=== PATIENT | female | born 1975 | race Caucasian/White ===

== ENCOUNTER 2019-05-04 10:13 | Observation (INO) | payer OTHER, SELFPAY ==
[~2019-05-04] VITALS: Ht 175.3 cm; Wt 68.5 kg
[2019-05-04] MEDS ORDERED: ALBU1.25 NEB (10:22)
[2019-05-04] MEDS ORDERED: NS 1,000 ML IV ONE ×4 (10:30→16:00)
[2019-05-04 10:47] LABS: VENOUS BASE EXCESS 1.2 (-2.0-2.0); VENOUS HCO3 22.2 MEQ/L (23.0-27.0); VENOUS O2 SATURATION 48.9 % (60.0-80.0); VENOUS PARTIAL PRESSURE CO2 26.5 mmHg (38.0-50.0); VENOUS PARTIAL PRESSURE O2 23.9 mmHg (30.0-50.0); VENOUS PH 7.541 UNITS (7.330-7.430); VENOUS STANDARD HCO3 24.3 MEQ/L
[2019-05-04 10:53] LABS: BASO # 0.1 10^3/uL (0.0-0.2); BASO % 0.7 % (0.0-1.0); EOS # 0.1 10^3/uL (0.0-0.5); EOS % 0.7 % (0.0-3.0); HEMATOCRIT 41.1 % (36.0-47.0); HEMOGLOBIN 14.7 g/dl (12.0-15.5); LYMPH # 1.5 10^3/uL (1.5-5.0); LYMPH % 19.5 % (24.0-44.0); MEAN CORPUSCULAR HEMOGLOBIN 33.8 pg (27.0-33.0); MEAN CORPUSCULAR HGB CONC 35.8 g/dl (32.0-36.5); MEAN CORPUSCULAR VOLUME 94.5 fl (80.0-96.0); MONO # 0.7 10^3/uL (0.0-0.8); MONO % 9.9 % (0.0-5.0); NEUTROPHILS # 5.1 10^3/uL (1.5-8.5); NEUTROPHILS % 68.8 % (36.0-66.0); PLATELET COUNT, AUTOMATED 322 10^3/uL (150-450); RED BLOOD COUNT 4.35 10^6/uL (4.00-5.40); WHITE BLOOD COUNT 7.5 10^3/uL (4.0-10.0)
--- NOTE | 2019-05-04 11:09 | REP ---
CHEST: Two views. There is no evidence of acute infiltrate. No pleural effusion is seen. The heart is normal in size. The mediastinal silhouette is unremarkable. The visualized osseous structures are intact. IMPRESSION: No acute pulmonary disease. Electronically Signed by Og Martini MD 05/04/2019 12:34 P
[2019-05-04 12:00] LABS: ALBUMIN 2.9 GM/DL (3.2-5.2); ALT/SGPT 39 U/L (12-78); BILIRUBIN,DIRECT 0.5 MG/DL (0.0-0.2); BILIRUBIN,TOTAL 1.1 MG/DL (0.2-1.0); BLOOD UREA NITROGEN 12 MG/DL (7-18); CALCIUM LEVEL 8.8 MG/DL (8.5-10.1); CARBON DIOXIDE LEVEL 22 MEQ/L (21-32); CHLORIDE LEVEL 94 MEQ/L (98-107); CK-MB VALUE MASS < 1.0 NG/ML (<3.6); CPK CREATINE PHOSPHOKINASE 35 U/L (26-192); CREATININE FOR GFR 1.09 MG/DL (0.55-1.30); GLOMERULAR FILTRATION RATE 57.5 (>58); GLUCOSE, FASTING 113 MG/DL (70-100); MB/CK RELATIVE INDEX 2.86 (< OR =4); NT-PRO BNP 54 PG/ML (<125); SODIUM LEVEL 134 MEQ/L (136-145); TOTAL PROTEIN 6.7 GM/DL (6.4-8.2); TROPONIN I < 0.02 NG/ML (< 0.10)
[2019-05-04 12:01] LABS: POTASSIUM SERUM 2.6 MEQ/L (3.5-5.1)
[2019-05-04] MEDS ORDERED: POTASSIUM CHLORIDE 10 MEQ SR TABLET PO ONE (12:15)
[2019-05-04] MEDS ORDERED: KCL 10MEQ/100ML SWI (KRUN) 10 MEQ in IV 1 EA IV ONE (12:15)
[2019-05-04] MEDS ORDERED: ISOVUE-370 76% 100ML VIAL (Q9967) As Ordered ONE (12:33)
--- NOTE | 2019-05-04 13:49 | REP ---
CT ANGIOGRAM CHEST: TECHNIQUE: Axial contrast enhanced images from the thoracic inlet to the upper abdomen using 100 mL Isovue 370 intravenous contrast material with multiplanar reformations. There is no CT evidence of pulmonary embolism. There is no thoracic aortic aneurysm or dissection. Heart is normal in size. There is no mediastinal, hilar, or chest wall lymphadenopathy. There is no pleural or pericardial effusion. No infiltrate is seen in either lung. There is diffuse fatty infiltration of the liver. IMPRESSION: No CT evidence of pulmonary embolism or aortic dissection. No infiltrate in either lung. Diffuse fatty infiltration of the liver. Electronically Signed by Og Martini MD 05/04/2019 02:40 P
[2019-05-04] MEDS ORDERED: ONDANSETRON 4MG/2ML VIAL (J2405) As Ordered ONE (14:36)
[2019-05-04] MEDS ORDERED: ONDANSETRON 4MG/2ML VIAL (J2405) IV ONE ×2 (14:45→17:15)
[2019-05-04 16:34] LABS: LIPASE 84 U/L (73-393)
[2019-05-04] MEDS ORDERED: GI COCKTAIL 50ML BTL(HYOSCYAMINE/MAALOX/LIDOCAINE VISCOUS)(1:3:1) PO ONE (17:15)
[2019-05-04] MEDS ORDERED: ALBU83IN NEB (17:35)
--- NOTE | 2019-05-04 18:17 | REPVR ---
PROCEDURE INFORMATION: Exam: CT Abdomen And Pelvis Without Contrast Exam date and time: 05/04/2019 5:15 PM Clinical history: 44 years old, female; Abdominal pain; Generalized; Additional info: Abd pain/vomiting TECHNIQUE: Imaging protocol: Computed tomography of the abdomen and pelvis without contrast. Radiation optimization: All CT scans at this facility use at least one of these dose optimization techniques: automated exposure control; mA and/or kV adjustment per patient size (includes targeted exams where dose is matched to clinical indication); or iterative reconstruction. COMPARISON: No relevant prior studies available. FINDINGS: Liver: Diffuse fatty infiltration of the liver with areas of fatty sparing. Gallbladder and bile ducts: Normal. No calcified stones. No ductal dilation. Pancreas: Unremarkable. No ductal dilation. Spleen: Unremarkable. No splenomegaly. Adrenals: Normal. No mass. Kidneys and ureters: Unremarkable. No stones. No hydronephrosis. Stomach and bowel: Unremarkable. No obstruction. No mucosal thickening. Appendix: No evidence of appendicitis. Intraperitoneal space: No free air. No significant fluid collection. Vasculature: Unremarkable. No abdominal aortic aneurysm. Lymph nodes: Mild mesenteric lymphadenopathy, nonspecific. These changes may be seen with inflammatory, infectious and neoplastic processes. Correlate clinically. Bladder: Unremarkable as visualized. Reproductive: 20 mm diameter cyst in the right adnexa, likely ovarian. Uterus and left adnexa are unremarkable. Bones/joints: No acute fracture. Soft tissues: Unremarkable. IMPRESSION: 1. No acute abnormality. 2. Diffuse fatty infiltration of liver with areas of fatty sparing. 3. Mild mesenteric lymphadenopathy, nonspecific. These changes may be seen with inflammatory, infectious and neoplastic processes. Correlate clinically. 4. Right adnexal cystic lesion, likely ovarian cyst. Followup pelvic ultrasound in 6-12 weeks is recommended. Electronically signed by: Omar Hernandez On 05/04/2019 18:16:52 PM
--- NOTE | 2019-05-04 19:20 | HPEPDOC ---
[facility] Medical History & Physical Date of Admission May 04, 2019 Date of Service: May 04, 2019 Attending Physician: OSMEL ANDERSON MD History and Physical TIME OF SERVICE 840PM CHIEF COMPLAINT: chest tightness HISTORY OF PRESENT ILLNESS: This is a 44 yr old F who presented with c/o f chest tightness and difficulties catching her breath. She has had a runny nose with post-nasal drip for a few days and a cough productive of yellow sputum. Associated symptoms include sharp 3/10 in severity mid-chest tightness that radiates to the side of the chest that is made worse with coughing, nausea, non-bloody emesis and one episode of loose stools. She received anti-emetics and 4L of IVF in the ED but continues to vomit. REVIEW OF SYSTEMS: 12 point ROS negative except as listed in HPI PAST MEDICAL/SURGICAL HISTORY: Chronic Asthma SOCIAL HISTORY: Former smoker + Alcohol abuse FAMILY HISTORY: CAD DM ALLERGIES: Please see below. HOME MEDICATIONS: Please see below. PHYSICAL EXAMINATION: VITAL SIGNS: see below GENERAL APPEARANCE: NAD/ appears stated age HEENT: NCAT/ MMM &P / Lips acyanotic CARDIOVASCULAR: RRR/NMRG LUNGS: coughing occasionally / has decreased breath sounds bilaterally / is not wheezing MUSCULOSKELETAL: CAROLYNN x 4 EXTREMITIES: no lower extremity edema INTEGUMENT: skin not flushed NEUROLOGICAL: CN 2-12 intact / speech not dysarthric PSYCHIATRIC: A&O x3 able to understand and follow all commands LABORATORY DATA: See below. IMAGING: Chest x-ray IMPRESSION: No acute pulmonary disease." CTA chest IMPRESSION: No CT evidence of pulmonary embolism or aortic dissection. No infiltrate in either lung. Diffuse fatty infiltration of the liver." CT abdomen/pelvis "IMPRESSION: 1. No acute abnormality. 2. Diffuse fatty infiltration of liver with areas of fatty sparing. 3. Mild mesenteric lymphadenopathy, nonspecific. These changes may be seen with inflammatory, infectious and neoplastic processes. Correlate clinically. 4. Right adnexal cystic lesion, likely ovarian cyst. Followup pelvic ultrasound in 6-12 weeks is recommended. " MICROBIOLOGY: Please see below. ASSESSMENT: is a 44 yr old F w a PMH of Chronic Asthma who will be admitted under observation because of intractable n/v likely 2/2 a viral infection. PLAN: 1. Dehydration 2/2 Nausea and Vomiting likely due to a viral infection She had lactic Acidosis 2/2 dehydration that resolved with IVF Plan: admit to [facility] / telemetry / zofran / IVF 2. Hypokalemia 2/2 vomiting Plan: telemetry / replete K / f/u Magnesium 3. Mild Asthma Exacerbation likey 2/2 viral infection Chest x-ray & influenza panel unrevealing d-dimer was elevated but CTA was negative for PE Plan: Tessalon pearls / albuterol PRN/ scheduled duonebs / oral prednisone (day #1) with Protonix to prevent steroid induced gastric ulcer 4. Alcohol Abuse Plan: fall precautions / seizure precautions / Ativan per CIWA protocol / thia mine /folic acid 5.Ovarian Cyst Plan: f/u w PCP or Gyne for TVUS in 6-12 weeks on an out pt basis DVT Px w SCDs DISPO: likely home tomorrow once n/v have resolved Vital Signs Vital Signs Date Time Temp Pulse Resp B/P (MAP) Pulse Ox O2 Delivery O2 Flow Rate FiO2 05/04/19 19:00 98.2 87 18 105/79 (88) 99 Room Air Laboratory Data Labs 24H Laboratory Tests 2 05/04/19 10:29: Immature Granulocyte % (Auto) 0.4, Neutrophils (%) (Auto) 68.8H, Lymphocytes (%) (Auto) 19.5L, Monocytes (%) (Auto) 9.9H, Eosinophils (%) (Auto) 0.7, Basophils (%) (Auto) 0.7, Neutrophils # (Auto) 5.1, Lymphocytes # (Auto) 1.5, Monocytes # (Auto) 0.7, Eosinophils # (Auto) 0.1, Basophils # (Auto) 0.1, Nucleated Red Blood Cells % (auto) 0.0, D-Dimer, Quantitative 772.72H, Blood Gas Bicarbonate Standard 24.3, Venous Blood pH 7.541H, Venous Blood Partial Pressure CO2 26.5L, Venous Blood Partial Pressure O2 23.9L, Venous Blood Total Carbon Dioxide 23.0L, Venous Blood HCO3 22.2L, Venous Blood Oxygen Saturation 48.9L, Venous Blood Base Excess 1.2, Anion Gap 18H, Glomerular Filtration Rate 57.5L, Lactic Acid Level 6.0*H, Calcium Level 8.8, Total Bilirubin 1.1H, Direct Bilirubin 0.5H, Aspartate Amino Transf (AST/SGOT) 59H, Alanine Aminotransferase (ALT/SGPT) 39, Alkaline Phosphatase 142H, Total Creatine Kinase 35, Creatine Kinase MB < 1.0, Creatine Kinase MB Relative Index 2.86, Troponin I < 0.02, UM-Pme-D-Type Natriuretic Peptide 54, Total Protein 6.7, Albumin 2.9L, Albumin/Globulin Ratio 0.76L, Lipase 84, Thyroid Stimulating Hormone (TSH) 2.110 05/04/19 12:21: Carboxyhemoglobin 2.0H, Magnesium Level 1.8, Ethyl Alcohol Level < 0.003 05/04/19 13:21: Lactic Acid Level 1.8 05/04/19 14:53: Lactic Acid Followup at 4 Hours 1.4 CBC/BMP Laboratory Tests 05/04/19 10:29 Microbiology Microbiology 05/04/19 Respiratory Virus Panel (PCR) ([facility]) - Final, Complete 05/04/19 Blood Culture, Received Pending 05/04/19 Blood Culture, Received Pending Home Medications Scheduled PRN Albuterol Sulf (Albuterol Sulfate) 2.5 Mg/3 Ml Vial.neb, 1 VIAL NEB Q4H PRN for SOB/WHEEZING Allergies Coded Allergies: aspirin (Verified Allergy, Severe, angioedema, 05/04/19) A-FIB/CHADSVASC A-FIB History Current/History of A-Fib/PAF?: No Current PO Anticoag Therapy: OSMEL Mccollum MD May 04, 2019 19:20
[2019-05-04] MEDS ORDERED: ONDANSETRON 4 MG TAB (S0181) PO PRN (19:30)
[2019-05-04] MEDS ORDERED: ACETAMINOPHEN TAB 650MG DOSE (2X325MG) PO PRN (19:30)
[2019-05-04 20:11] LABS: HEMATOCRIT 32.7 % (36.0-47.0); MEAN CORPUSCULAR HEMOGLOBIN 33.9 pg (27.0-33.0); MEAN CORPUSCULAR HGB CONC 35.2 g/dl (32.0-36.5); MEAN CORPUSCULAR VOLUME 96.5 fl (80.0-96.0); PLATELET COUNT, AUTOMATED 240 10^3/uL (150-450); RED BLOOD COUNT 3.39 10^6/uL (4.00-5.40); WHITE BLOOD COUNT 7.9 10^3/uL (4.0-10.0)
[2019-05-04 20:15] LABS: HEMOGLOBIN 11.5 g/dl (12.0-15.5)
[2019-05-04 20:26] LABS: BLOOD UREA NITROGEN 10 MG/DL (7-18); CALCIUM LEVEL 7.9 MG/DL (8.5-10.1); CARBON DIOXIDE LEVEL 26 MEQ/L (21-32); CHLORIDE LEVEL 107 MEQ/L (98-107); CREATININE FOR GFR 0.68 MG/DL (0.55-1.30); GLOMERULAR FILTRATION RATE > 60.0 (>58); GLUCOSE, FASTING 86 MG/DL (70-100); POTASSIUM SERUM 2.9 MEQ/L (3.5-5.1); SODIUM LEVEL 140 MEQ/L (136-145)
[2019-05-04 20:30] VITALS: BP 107/75
[2019-05-04] MEDS ORDERED: NS 250 ML IV ONE (20:45)
[2019-05-04] MEDS ORDERED: LORazepam 2 MG TAB PO PRN (20:45)
[2019-05-04] MEDS ORDERED: NICOTINE 7 MG/24 HR TRANSDERMAL TD SCH (20:45)
[2019-05-04] MEDS ORDERED: POTASSIUM CHL PWD 20 MEQ PACKET PO ONE (21:15)
[2019-05-04] MEDS ORDERED: ALBUTEROL SULFATE 2.5 MG/0.5 ML INH NEB SOLN NEB PRN (21:15)
[2019-05-04] MEDS ORDERED: BENZONATATE 100 MG CAP PO PRN (21:15)
[2019-05-04 21:33] LABS: MAGNESIUM LEVEL 1.8 MG/DL (1.8-2.4)
[2019-05-04] MEDS: THIAMINE 100 MG TAB PO SCH (22:15)
[2019-05-04] MEDS: predniSONE 20 MG TAB PO SCH (22:15)
[2019-05-04] MEDS: PANTOPRAZOLE 40MG TAB (PROTONIX) PO SCH (22:21)
[2019-05-04 23:59] VITALS: BP 107/75
[2019-05-05] MEDS: IPRATROPIUM 0.5MG/ALBUTEROL 2.5MG INH SOL UD 3ML (DUONEB)(J7620) NEB SCH ×2 (01:40→07:40)
[2019-05-05 06:00] VITALS: BP_SYST 99; BP_DIAS 66; BP_DIAS 68
[2019-05-05 06:19] LABS: HEMOGLOBIN 10.9 g/dl (12.0-15.5); MEAN CORPUSCULAR HEMOGLOBIN 32.5 pg (27.0-33.0); MEAN CORPUSCULAR HGB CONC 34.1 g/dl (32.0-36.5); MEAN CORPUSCULAR VOLUME 95.5 fl (80.0-96.0); PLATELET COUNT, AUTOMATED 253 10^3/uL (150-450); RED BLOOD COUNT 3.35 10^6/uL (4.00-5.40); WHITE BLOOD COUNT 4.8 10^3/uL (4.0-10.0)
[2019-05-05 06:45] LABS: BLOOD UREA NITROGEN 8 MG/DL (7-18); CALCIUM LEVEL 8.1 MG/DL (8.5-10.1); CARBON DIOXIDE LEVEL 24 MEQ/L (21-32); CHLORIDE LEVEL 110 MEQ/L (98-107); GLOMERULAR FILTRATION RATE > 60.0 (>58); GLUCOSE, FASTING 113 MG/DL (70-100); POTASSIUM SERUM 3.6 MEQ/L (3.5-5.1); SODIUM LEVEL 140 MEQ/L (136-145)
[2019-05-05] MEDS: FOLIC ACID 1 MG TAB PO SCH (08:07)
[2019-05-05] MEDS: MULTIVITAMINS/MINERALS THERAP 1 TAB PO SCH (08:07)
[2019-05-05] MEDS: THIAMINE 100 MG TAB PO SCH ×2 (08:07→20:02)
[2019-05-05] MEDS: predniSONE 20 MG TAB PO SCH (08:07)
[2019-05-05] MEDS: PANTOPRAZOLE 40MG TAB (PROTONIX) PO SCH (08:07)
[2019-05-05 10:00] VITALS: BP 106/70
--- NOTE | 2019-05-05 11:29 | IPNPDOC ---
Subjective Date Seen The patient was seen on 05/05/19. Subjective Chief Complaint/HPI Says she had some chest tightness when she woke up but that got better after she got the nebulizer treatment. No fever or chills, continues to have post nasal drip. had some loose bowel movements last night. no abdominal pain or vomiting . Assessment /Plan Assessment is a 44 yr old F who does not follow with any PMD with [facility] Chronic Asthma just used nebs twice a day does not have any inhalors [facility] for chest tightness and increased post nasal drip, nausea and vomiting. She was found to have asthma exacerbation due to viral infection, dehydration. She had lacticacidosis, hypokalemia and hyponatremia. Dehydration 2/2 Nausea and Vomiting likely due to a viral infection She had lactic Acidosis 2/2 dehydration that resolved with IVF Hypokalemia 2/2 vomiting resolved Asthma Exacerbation likey 2/2 viral infection Chest x-ray & influenza panel unrevealing d-dimer was elevated but CTA was negative for PE Tessalon pearls / albuterol PRN/ scheduled duonebs / oral prednisone (day #2/5) with Protonix to prevent steroid induced gastric ulcer will start on flovent. Alcohol Abuse fall precautions / seizure precautions / Ativan per [facility]WA protocol / thiamine /folic acid Ovarian Cyst Plan: f/u w PCP or Gyne for TVUS in 6-12 weeks on an out pt basis DVT Px w SCDs Disposition: home when insurance set up to afford meds. Plan/VTE VTE Prophylaxis Ordered?: Yes VS, I&O, 24H, Fishbone Vital Signs/I&O Vital Signs Date Time Temp Pulse Resp B/P (MAP) Pulse Ox O2 Delivery O2 Flow Rate FiO2 05/05/19 10:00 99.2 111 18 106/70 (82) 98 Room Air I&O- Last 24 Hours up to 6 AM 05/05/19 05:59 Intake Total 5100 ml Output Total 200 ml Balance 4900 ml Laboratory Data 24H LABS Laboratory Tests 2 05/04/19 12:21: Carboxyhemoglobin 2.0H, Magnesium Level 1.8, Ethyl Alcohol Level < 0.003 05/04/19 13:21: Lactic Acid Level 1.8 05/04/19 14:53: Lactic Acid Followup at 4 Hours 1.4 05/04/19 19:44: Magnesium Level 1.8, Nucleated Red Blood Cells % (auto) 0.0, Anion Gap 7L, Glomerular Filtration Rate > 60.0, Calcium Level 7.9L 05/05/19 06:02: Nucleated Red Blood Cells % (auto) 0.0, Anion Gap 6L, Glomerular Filtration Rate > 60.0, Calcium Level 8.1L CBC/BMP Laboratory Tests 05/04/19 19:44 05/05/19 06:02 Microbiology Microbiology 05/04/19 Respiratory Virus Panel (PCR) ([facility]) - Final, Complete 05/04/19 Blood Culture - Preliminary, Resulted No growth after 24 hours . All specim... 05/04/19 Blood Culture - Preliminary, Resulted No growth after 24 hours . All specim... FRANCE KEN MD May 05, 2019 11:29
[2019-05-05] MEDS ORDERED: ALBUTEROL 90 MCG/ACT 8GM HFA INHALER INH PRN (11:30)
[2019-05-05 14:00] VITALS: BP_SYST 103; BP_SYST 109; BP_DIAS 69; BP_DIAS 72
[2019-05-05] MEDS: ALBUTEROL SULFATE 2.5 MG/0.5 ML INH NEB SOLN NEB SCH ×2 (16:02→23:19)
[2019-05-05 18:00] VITALS: BP 110/77
--- NOTE | 2019-05-05 20:00 | ECGEPIP ---
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
[2019-05-05] MEDS: FLUTICASONE HFA 110 MCG 12 GM INHALER (FLOVENT) INH SCH (21:33)
[2019-05-05 22:00] VITALS: BP 101/73
[2019-05-06 02:00] VITALS: BP 105/54
[2019-05-06 06:00] VITALS: BP 106/52
[2019-05-06] MEDS: FLUTICASONE HFA 110 MCG 12 GM INHALER (FLOVENT) INH SCH (07:34)
[2019-05-06] MEDS: ALBUTEROL SULFATE 2.5 MG/0.5 ML INH NEB SOLN NEB SCH (07:34)
[2019-05-06] MEDS: MULTIVITAMINS/MINERALS THERAP 1 TAB PO SCH (08:46)
[2019-05-06] MEDS: FOLIC ACID 1 MG TAB PO SCH (08:46)
[2019-05-06] MEDS: THIAMINE 100 MG TAB PO SCH (08:46)
[2019-05-06 10:00] VITALS: BP 91/58
[2019-05-06] MEDS ORDERED: ALBU83IN NEB (10:52)
[2019-05-06] MEDS ORDERED: PRED10TA2 PO (10:52)
[2019-05-06] MEDS ORDERED: ALBU83IN INH (10:54)
[2019-05-06] MEDS ORDERED: PROV108A INH (11:08)
--- NOTE | 2019-05-06 13:31 | DS.PDOC ---
Discharge Summary General Date of Admission May 04, 2019 at 19:16 Date of Discharge 05/06/19 Discharge Summary PROCEDURES PERFORMED DURING STAY: None. ADMITTING DIAGNOSES: 1. Dehydration. Exacerbation of asthma. DISCHARGE DIAGNOSES: 1. Dehydration. Exacerbation of asthma. COMPLICATIONS/CHIEF COMPLAINT: Dehydration. HISTORY OF PRESENT ILLNESS: This is a 44 yr old F who presented with c/o f chest tightness and difficulties catching her breath. She has had a runny nose with post-nasal drip for a few days and a cough productive of yellow sputum. Associated symptoms include sharp 3/10 in severity mid-chest tightness that radiates to the side of the chest that is made worse with coughing, nausea, non- bloody emesis and one episode of loose stools. She received anti-emetics and 4L of IVF in the ED but continues to vomit.. HOSPITAL COURSE: [ is a 44 yr old F who does not follow with any PMD with [facility] Chronic Asthma just used nebs twice a day does not have any inhalors presented to [facility] ED for chest tightness and increased post nasal drip, nausea and vomiting. She was found to have asthma exacerbation due to viral infection, dehydration. She had lacticacidosis, hypokalemia and hyponatremia. Regarding her dehydration which was most likely secondary nausea, vomiting secondary to viral infection. She received IV hydration in ED and on the floor and dehydration, resolved. Her hypokalemia also was corrected, which was most likely secondary to nausea, vomiting. Regarding her exacerbation of asthma, which again most likely secondary to viral infection . She had a chest x-ray done which was essentially negative and influenza panel was negative as well Also had a CT of chest done with a negative PE Patient responded very well with IV steroids and nebulizer treatment Patient does not have a PCP R health insurance, hence a discussed with case management. She will be provided with Proventil inhaler and tapering dose of prednisone at home . She will also be referred to the clinic for medical follow-up as needed Disposition: home DISCHARGE MEDICATIONS: Please see below. ALLERGIES: Please see below. PHYSICAL EXAMINATION ON DISCHARGE: VITAL SIGNS: Please see below. GENERAL: Within normal limits HEENT: PERRLA. Extraocular muscles intact NECK: Supple CARDIOVASCULAR EXAMINATION: S1, S2, regular RESPIRATORY EXAMINATION: Clear to A&P ABDOMINAL EXAMINATION: , Soft, nontender, bowel sounds present EXTREMITIES: No clubbing, cyanosis, edema SKIN: Within normal limits NEUROLOGICAL EXAMINATION: Within normal limits PSYCHIATRIC EXAMINATION: The normal limit LABORATORY DATA: Please see below. IMAGING: Chest x-ray: Within normal limits PROGNOSIS: Good ACTIVITY: As tolerated. DIET: As tolerated DISCHARGE PLAN: home DISPOSITION: 01 Home, Self-Care. DISCHARGE INSTRUCTIONS: 1. As per discharge instructions. ITEMS TO FOLLOWUP ON ON OUTPATIENT: 1. With PCP in one week. DISCHARGE CONDITION: Stable. TIME SPENT ON DISCHARGE: 40 minutes. Vital Signs/I&Os Vital Signs Date Time Temp Pulse Resp B/P (MAP) Pulse Ox O2 Delivery O2 Flow Rate FiO2 05/06/19 10:00 98.9 100 18 91/58 (69) 93 Room Air I&O- Last 24 Hours up to 6 AM 05/06/19 06:00 Intake Total 1710 ml Output Total 550 ml Balance 1160 ml Microbiology Microbiology 05/04/19 Respiratory Virus Panel (PCR) ([facility]) - Final, Complete 05/04/19 Blood Culture - Preliminary, Resulted No Growth after 48 hours. All Specime... 05/04/19 Blood Culture - Preliminary, Resulted No Growth after 48 hours. All Specime... Discharge Medications Scheduled Albuterol Sulfate (Proventil Hfa) 6.7 Gm Hfa.aer.ad, 2 PUFF INH Q4H for wheezing Prednisone (Prednisone) 10 Mg Tablet, 10 MG PO TAPER Take 4 tabs daily x 3 days, then 3 tabs daily x 3 days, then 2 tabs daily x 3 days, then 1 tab daily x 3 days and stop Allergies Coded Allergies: aspirin (Verified Allergy, Severe, angioedema, 05/04/19) ALESIA YEPEZ MD May 06, 2019 13:31
== END 2019-05-06 12:10 | disposition home or self-care (01) ==
LOC: M ED 10:13 → EDBD 10:13 → M ED INP 19:16 → M MSPAV 20:17
PROVIDERS: ADMIT Internal Medicine; ATTEND Internal Medicine
DX: E86.0 Dehydration (principal); J45.901 Unspecified asthma with (acute) exacerbation; E87.2 Acidosis; E87.6 Hypokalemia; E87.1 Hypo-osmolality and hyponatremia; Z79.51 Long term (current) use of inhaled steroids; Z79.52 Long term (current) use of systemic steroids; Z88.8 Allergy status to other drugs, medicaments and biological substances; Z87.891 Personal history of nicotine dependence; F10.129 Alcohol abuse with intoxication, unspecified
CPT/HCPCS: 36415; 71046; 71275; 74176; 80048; 80076; 82375; 82550; 82553; 82803; 83605; 83690; 83735; 83880; 84443; 84484; 85025; 85027; 85379; 87040; 87486; 87581; 87633; 87798; 93005; 94640; 96361; 96374; 96376; 99285; G0480; J2405; Q9967

== ENCOUNTER 2021-04-20 13:11 | Emergency (ER) | payer SELFPAY ==
[~2021-04-20 13:11] MED LIST: ALBU1.25 NEB; ALBU83IN INH; ALBU83IN NEB; PRED10TA2 PO; PROV108A INH
--- NOTE | 2021-04-20 14:46 | REP ---
INDICATION: near-syncope COMPARISON: None. TECHNIQUE: Axial noncontrast images from the skull base to the vertex with coronal reformations. This CT examination was performed using the following dose reduction techniques: Automated exposure control, adjustment of mA and/or kv according to the patient's size, and use of iterative reconstruction technique. FINDINGS: The ventricles, sulci, and cisterns are normal in position and appearance. Martini-white differentiation is maintained. No acute intracranial hemorrhage, mass/mass effect, pathology or trauma/injury. No evidence for acute infarction. No extra-axial fluid collection. Calvarium is intact. Paranasal sinuses and mastoid air cells are clear. IMPRESSION: Normal noncontrast head CT. No evidence for acute intracranial pathology or trauma/injury. <Electronically signed by Tolu Hayes > 04/20/21 [id number]
--- NOTE | 2021-04-20 14:47 | REP ---
INDICATION: near-syncope COMPARISON: 05/04/2019 TECHNIQUE: Portable AP view of the chest FINDINGS: The mediastinum and cardiac silhouette are stable and within normal limits for portable technique. The lung humphries are clear without acute consolidation, effusion, or pneumothorax. Skeletal structures are intact. IMPRESSION: No acute cardiopulmonary process appreciated. <Electronically signed by Tolu Hayes > 04/20/21 [id number]
[2021-04-20 15:01] LABS: BASO # 0.1 10^3/uL (0.0-0.2); BASO % 0.5 % (0.0-1.0); EOS # 0.1 10^3/uL (0.0-0.5); EOS % 0.9 % (0.0-3.0); HEMATOCRIT 33.6 % (36.0-47.0); HEMOGLOBIN 11.1 g/dl (12.0-15.5); LYMPH # 1.1 10^3/uL (1.5-5.0); LYMPH % 12.2 % (24.0-44.0); MEAN CORPUSCULAR HEMOGLOBIN 32.2 pg (27.0-33.0); MEAN CORPUSCULAR VOLUME 97.4 fl (80.0-96.0); MONO # 1.2 10^3/uL (0.0-0.8); MONO % 12.9 % (2.0-8.0); NEUTROPHILS # 6.8 10^3/uL (1.5-8.5); NEUTROPHILS % 73.1 % (36.0-66.0); PLATELET COUNT, AUTOMATED 338 10^3/uL (150-450); RED BLOOD COUNT 3.45 10^6/uL (4.00-5.40); WHITE BLOOD COUNT 9.2 10^3/uL (4.0-10.0)
--- OUTSIDE RECORDS SUMMARY | 2021-04-20 15:03 | CCD ---
Author Author [facility] Organization [facility] Address Unknown Phone Unavailable Support Name Relationship Address Phone UE Next Of Kin Unknown Unavailable [place] [address] NICE N EASY Next Of Kin [address] [place] [address] AGNIESZKA FRANCISCO Next Of Kin [address] [place] [address] Re-disclosure Warning The records that you are about to access may contain information from federally-assisted alcohol or drug abuse programs. If such information is present, then the following federally mandated warning applies: This information has been disclosed to you from records protected by federal confidentiality rules (42 CFR part 2). The federal rules prohibit you from making any further disclosure of this information unless further disclosure is expressly permitted by the written consent of the person to whom it pertains or as otherwise permitted by 42 CFR part 2. A general authorization for the release of medical or other information is NOT sufficient for this purpose. The Federal rules restrict any use of the information to criminally investigate or prosecute any alcohol or drug abuse patient.The records that you are about to access may contain highly sensitive health information, the redisclosure of which is protected by Article 27-F of the [facility] Public Health law. If you continue you may have access to information: Regarding HIV / AIDS; Provided by facilities licensed or operated by the [facility] Office of Mental Health; or Provided by the [facility] Office for People With Developmental Disabilities. If such information is present, then the following [facility] mandated warning applies: This information has been disclosed to you from confidential records which are protected by state law. State law prohibits you from making any further disclosure of this information without the specific written consent of the person to whom it pertains, or as otherwise permitted by law. Any unauthorized further disclosure in violation of state law may result in a fine or detention sentence or both. A general authorization for the release of medical or other information is NOT sufficient authorization for further disc losure. Medications No Information Insurance Providers Payer name Policy type / Coverage type Policy ID Covered libertarian ID Covered libertarian's relationship to stringer Policy Stringer Plan Information SELF PAY ONLY [id number] SP [id number] Self Pay P UNAVAILABLE S UNAVAILA BLE PENDING [employer]OV[employer] INSURANCE [id number] SP [id number] [facility] [id number] SP [id number] [facility] O [id number] S [id number] SELF PAY UNAVAILABLE SP UNAVAILA BLE [id number] Problems, Conditions, and Diagnoses No Information Surgeries/Procedures No Information Results No Information Social History No Information
[2021-04-20 15:35] LABS: BLOOD UREA NITROGEN 15 MG/DL (7-18); CALCIUM LEVEL 8.7 MG/DL (8.5-10.1); CARBON DIOXIDE LEVEL 28 MEQ/L (21-32); CHLORIDE LEVEL 103 MEQ/L (98-107); CK-MB VALUE MASS < 1.0 NG/ML (<3.6); CPK CREATINE PHOSPHOKINASE 45 U/L (26-192); CREATININE FOR GFR 0.97 MG/DL (0.55-1.30); GLOMERULAR FILTRATION RATE > 60.0 (>58); GLUCOSE, FASTING 90 MG/DL (70-100); MAGNESIUM LEVEL 1.7 MG/DL (1.8-2.4); MB/CK RELATIVE INDEX 2.22 (< OR =4); POTASSIUM SERUM 3.7 MEQ/L (3.5-5.1); SODIUM LEVEL 138 MEQ/L (136-145); TROPONIN I < 0.02 NG/ML (< 0.10)
[2021-04-20] MEDS ORDERED: NS 1,000 ML IV ONE (17:05)
[2021-04-20 18:30] VITALS: BP 138/91
--- NOTE | 2021-04-21 07:39 | ECGEPIP ---
[facility] - ED Test Date: 2021-04-20 Pat Name: TERRI FRANCISCO Department: Room: - Gender: Female Insurance Account Representative: SHELLY : 1975 Requested By: Jermaine Oro Order Number: [id number] Reading MD: Jermaine Vraela Measurements Intervals [place] Rate: 79 P: 41 SD: 154 QRS: 1 QRSD: 72 T: 21 QT: 402 QTc: 460 Interpretive Statements Normal sinus rhythm Low voltage QRS Electronically Signed on 04-21-2021 7:39:09 EDT by Jermaine Varela
== END 2021-04-20 18:47 | disposition home or self-care (01) ==
LOC: M ED 13:11 → EDBD 13:11 → M ED 18:47
DX: R55 Syncope and collapse (principal); E86.0 Dehydration; J45.909 Unspecified asthma, uncomplicated; Z88.8 Allergy status to other drugs, medicaments and biological substances

== ENCOUNTER 2022-06-27 15:39 | Inpatient (IN) | payer BC, SELFPAY ==
[~2022-06-27] VITALS: Ht 172.7 cm; Wt 54.5 kg
[~2022-06-27 15:39] MED LIST changes: +ALBU2.5V10 INH; +ALBU2.5V10 NEB; +ALBU6.7H6 INH; -ALBU83IN INH; -ALBU83IN NEB; -PROV108A INH
[2022-06-27 17:21] LABS: ABG BASE EXCESS 2.1 (-2.0-2.0); ABG HCO3 23.2 MEQ/L (22.0-26.0); ABG PARTIAL PRESSURE CO2 26.8 mmHg (35.0-45.0); ABG PARTIAL PRESSURE O2 86.4 mmHg (75.0-100.0); ABG STANDARD HCO3 26.3 MEQ/L (22.0-26.0); ABG pH (ARTERIAL) 7.555 UNITS (7.350-7.450)
[2022-06-27 17:24] LABS: BASO % 0.3 % (0.0-1.0); EOS % 0.2 % (0.0-3.0); HEMATOCRIT 39.5 % (36.0-47.0); HEMOGLOBIN 13.3 g/dl (12.0-15.5); LYMPH # 1.2 10^3/uL (1.5-5.0); LYMPH % 9.4 % (24.0-44.0); MEAN CORPUSCULAR HEMOGLOBIN 30.2 pg (27.0-33.0); MEAN CORPUSCULAR HGB CONC 33.7 g/dl (32.0-36.5); MEAN CORPUSCULAR VOLUME 89.8 fl (80.0-96.0); MONO % 7.8 % (2.0-8.0); NEUTROPHILS # 10.1 10^3/uL (1.5-8.5); NEUTROPHILS % 81.4 % (36.0-66.0); PLATELET COUNT, AUTOMATED 370 10^3/uL (150-450); WHITE BLOOD COUNT 12.4 10^3/uL (4.0-10.0)
[2022-06-27 17:41] LABS: ETHYL ALCOHOL (ETHANOL) 0.003 % (0.000-0.010)
[2022-06-27 17:43] LABS: ACETAMINOPHEN LEVEL < 2.0 UG/ML (10.0-20.0); BILIRUBIN,DIRECT 0.5 MG/DL (<0.4); SALICYLATE LEVEL < 3.0 MG/DL (<30)
[2022-06-27 17:48] LABS: ALBUMIN 3.1 G/DL (3.2-5.2); ALKALINE PHOSPHATASE 142 U/L (46-116); ALT/SGPT 68 U/L (7.0-40); AST/SGOT 86 U/L (<34); BILIRUBIN,TOTAL 0.8 MG/DL (0.3-1.2); BLOOD UREA NITROGEN 55 MG/DL (9-23); CALCIUM LEVEL 9.3 MG/DL (8.5-10.1); CARBON DIOXIDE LEVEL 24 MMOL/L (20-31); CHLORIDE LEVEL 105 MMOL/L (98-107); GLOMERULAR FILTRATION RATE > 60.0 (>58); GLUCOSE, FASTING 103 MG/DL (60-100); POTASSIUM SERUM 2.8 MMOL/L (3.5-5.1); SODIUM LEVEL 145 MMOL/L (136-145); TOTAL PROTEIN 7.3 G/DL (5.7-8.2)
[2022-06-27] MEDS ORDERED: POTASSIUM CHLORIDE 10MEQ SR TABLET PO ONE (17:50)
[2022-06-27 18:06] LABS: MAGNESIUM LEVEL 2.1 MG/DL (1.8-2.4)
[2022-06-27 18:49] LABS: AMPHETAMINES LEVEL URINE NEGATIVE (NEGATIVE); BARBITURATES URINE NEGATIVE (NEGATIVE); BENZODIAZEPINES URINE NEGATIVE (NEGATIVE)
[2022-06-27 18:50] LABS: CANNABINOIDS URINE NEGATIVE (NEGATIVE); COCAINE METABOLITE URINE NEGATIVE (NEGATIVE); METHADONE URINE NEGATIVE (NEGATIVE); OPIATES URINE NEGATIVE (NEGATIVE); PHENCYCLIDINE URINE NEGATIVE (NEGATIVE)
[2022-06-27] MEDS ORDERED: NS 1,000 ML IV ONE ×2 (20:35→22:15)
[2022-06-27] MEDS ORDERED: med rec comment (21:20)
[2022-06-27] MEDS ORDERED: HOME MED LIST COMPLETE! XX SCH (21:20)
[2022-06-27] MEDS ORDERED: SODIUM CHLORIDE 0.9% 1000ML IV ONE (22:45)
[2022-06-27] MEDS ORDERED: THIAMINE 200MG 2ML VIAL IM ONE (22:45)
[2022-06-28] MEDS: KCL 10MEQ/100ML SWI (KRUN) 10 MEQ in IV 1 EA IV SCH ×3 (00:17→03:59)
[2022-06-28] MEDS: HEPARIN SOD (PORCINE) 5000UNITS/ML 1ML VIAL/SYRINGE SC SCH ×3 (05:51→22:35)
[2022-06-28 07:57] LABS: BASO % 0.4 % (0.0-1.0); EOS # 0.1 10^3/uL (0.0-0.5); EOS % 1.3 % (0.0-3.0); HEMATOCRIT 34.3 % (36.0-47.0); LYMPH # 1.4 10^3/uL (1.5-5.0); LYMPH % 13.6 % (24.0-44.0); MEAN CORPUSCULAR HEMOGLOBIN 29.8 pg (27.0-33.0); MEAN CORPUSCULAR HGB CONC 32.1 g/dl (32.0-36.5); MONO # 0.6 10^3/uL (0.0-0.8); MONO % 6.1 % (2.0-8.0); NEUTROPHILS # 7.9 10^3/uL (1.5-8.5); NEUTROPHILS % 77.6 % (36.0-66.0); PLATELET COUNT, AUTOMATED 303 10^3/uL (150-450); RED BLOOD COUNT 3.69 10^6/uL (4.00-5.40); WHITE BLOOD COUNT 10.2 10^3/uL (4.0-10.0)
[2022-06-28 08:05] LABS: MAGNESIUM LEVEL 1.9 MG/DL (1.8-2.4)
[2022-06-28 08:12] LABS: ALBUMIN 2.4 G/DL (3.2-5.2); ALKALINE PHOSPHATASE 107 U/L (46-116); ALT/SGPT 51 U/L (7.0-40); AST/SGOT 63 U/L (<34); BILIRUBIN,TOTAL 0.7 MG/DL (0.3-1.2); BLOOD UREA NITROGEN 47 MG/DL (9-23); CALCIUM LEVEL 8.7 MG/DL (8.5-10.1); CARBON DIOXIDE LEVEL 21 MMOL/L (20-31); CHLORIDE LEVEL 115 MMOL/L (98-107); CREATININE FOR GFR 0.65 MG/DL (0.55-1.30); GLOMERULAR FILTRATION RATE > 60.0 (>58); GLUCOSE, FASTING 77 MG/DL (60-100); POTASSIUM SERUM 3.8 MMOL/L (3.5-5.1); SODIUM LEVEL 150 MMOL/L (136-145); TOTAL PROTEIN 5.7 G/DL (5.7-8.2)
[2022-06-28] MEDS: MULTIVITAMINS/MINERALS THERAP 1 TAB PO SCH (13:24)
[2022-06-28] MEDS: FOLIC ACID 1MG TAB PO SCH (13:24)
[2022-06-28] MEDS: THIAMINE 100 MG TAB PO SCH ×2 (13:25→20:05)
[2022-06-28 14:30] LABS: HEMATOCRIT 34.4 % (36.0-47.0); HEMOGLOBIN 10.9 g/dl (12.0-15.5)
[2022-06-28 15:14] LABS: BLOOD UREA NITROGEN 45 MG/DL (9-23); CALCIUM LEVEL 9.1 MG/DL (8.5-10.1); CARBON DIOXIDE LEVEL 22 MMOL/L (20-31); CHLORIDE LEVEL 114 MMOL/L (98-107); CREATININE FOR GFR 0.65 MG/DL (0.55-1.30); GLOMERULAR FILTRATION RATE > 60.0 (>58); GLUCOSE, FASTING 77 MG/DL (60-100); POTASSIUM SERUM 3.7 MMOL/L (3.5-5.1); SODIUM LEVEL 150 MMOL/L (136-145)
[2022-06-28 15:16] LABS: FOLATE 2.14 NG/ML (>5.4)
[2022-06-28 15:17] LABS: VITAMIN B12 LEVEL 1592 PG/ML (211-911)
[2022-06-28] MEDS ORDERED: D5W 1,000 ML IV SCH (15:50)
[2022-06-28 16:31] LABS: THYROXINE (T4) 9.7 UG/DL (4.5-10.9)
[2022-06-28 16:32] LABS: FREE THYROXINE INDEX 4.5 % (1.3-4.8); T UPTAKE 46.7 % (22.5-37.0); THYROID STIMULATING HORMONE 1.592 uIU/ML (0.55-4.78)
[2022-06-28 17:30] VITALS: BP 120/77
[2022-06-28 20:02] VITALS: BP 103/65
[2022-06-28 20:55] LABS: BLOOD UREA NITROGEN 39 MG/DL (9-23); CALCIUM LEVEL 9.2 MG/DL (8.5-10.1); CARBON DIOXIDE LEVEL 24 MMOL/L (20-31); CHLORIDE LEVEL 111 MMOL/L (98-107); CREATININE FOR GFR 0.65 MG/DL (0.55-1.30); GLOMERULAR FILTRATION RATE > 60.0 (>58); GLUCOSE, FASTING 138 MG/DL (60-100); POTASSIUM SERUM 3.1 MMOL/L (3.5-5.1); SODIUM LEVEL 147 MMOL/L (136-145)
[2022-06-28] MEDS ORDERED: POTASSIUM CHLORIDE 10% LIQ 20MEQ/15ML UDC PO ONE (23:40)
[2022-06-29 00:55] LABS: BLOOD UREA NITROGEN 20 MG/DL (9-23); CALCIUM LEVEL 8.8 MG/DL (8.5-10.1); CARBON DIOXIDE LEVEL 22 MMOL/L (20-31); CHLORIDE LEVEL 111 MMOL/L (98-107); CREATININE FOR GFR 0.62 MG/DL (0.55-1.30); GLOMERULAR FILTRATION RATE > 60.0 (>58); GLUCOSE, FASTING 130 MG/DL (60-100); POTASSIUM SERUM 2.8 MMOL/L (3.5-5.1); SODIUM LEVEL 143 MMOL/L (136-145)
[2022-06-29 00:56] VITALS: BP 110/81
[2022-06-29] MEDS ORDERED: POTASSIUM CHLORIDE 10% LIQ 20MEQ/15ML UDC PO ONE (01:20)
[2022-06-29 04:10] VITALS: BP 123/74
[2022-06-29] MEDS: HEPARIN SOD (PORCINE) 5000UNITS/ML 1ML VIAL/SYRINGE SC SCH ×3 (06:09→20:37)
[2022-06-29 07:44] LABS: BASO # 0.1 10^3/uL (0.0-0.2); BASO % 0.9 % (0.0-1.0); EOS # 0.1 10^3/uL (0.0-0.5); EOS % 1.5 % (0.0-3.0); HEMATOCRIT 32.8 % (36.0-47.0); HEMOGLOBIN 10.6 g/dl (12.0-15.5); LYMPH # 1.5 10^3/uL (1.5-5.0); LYMPH % 15.5 % (24.0-44.0); MEAN CORPUSCULAR HEMOGLOBIN 29.8 pg (27.0-33.0); MEAN CORPUSCULAR HGB CONC 32.3 g/dl (32.0-36.5); MEAN CORPUSCULAR VOLUME 92.1 fl (80.0-96.0); MONO # 0.8 10^3/uL (0.0-0.8); NEUTROPHILS # 6.8 10^3/uL (1.5-8.5); NEUTROPHILS % 72.5 % (36.0-66.0); PLATELET COUNT, AUTOMATED 282 10^3/uL (150-450); RED BLOOD COUNT 3.56 10^6/uL (4.00-5.40); WHITE BLOOD COUNT 9.3 10^3/uL (4.0-10.0)
[2022-06-29 07:45] LABS: MAGNESIUM LEVEL 1.6 MG/DL (1.8-2.4)
[2022-06-29 07:59] LABS: ALBUMIN 2.4 G/DL (3.2-5.2); ALKALINE PHOSPHATASE 105 U/L (46-116); ALT/SGPT 51 U/L (7.0-40); AST/SGOT 64 U/L (<34); BILIRUBIN,TOTAL 0.7 MG/DL (0.3-1.2); BLOOD UREA NITROGEN 29 MG/DL (9-23); CARBON DIOXIDE LEVEL 27 MMOL/L (20-31); CHLORIDE LEVEL 113 MMOL/L (98-107); CREATININE FOR GFR 0.69 MG/DL (0.55-1.30); GLOMERULAR FILTRATION RATE > 60.0 (>58); GLUCOSE, FASTING 104 MG/DL (60-100); POTASSIUM SERUM 3.7 MMOL/L (3.5-5.1); SODIUM LEVEL 148 MMOL/L (136-145); TOTAL PROTEIN 5.5 G/DL (5.7-8.2)
[2022-06-29 08:00] VITALS: BP 124/89
[2022-06-29] MEDS: THIAMINE 100 MG TAB PO SCH ×3 (09:00→20:37)
[2022-06-29] MEDS: MULTIVITAMINS/MINERALS THERAP 1 TAB PO SCH ×2 (09:00→09:37)
[2022-06-29] MEDS: FOLIC ACID 1MG TAB PO SCH ×2 (09:00→09:37)
[2022-06-29] MEDS ORDERED: MAGNESIUM OXIDE 400MG TAB (MAG-OX) PO ONE (09:55)
[2022-06-29 12:00] VITALS: BP 117/76
[2022-06-29 12:04] LABS: VENOUS BASE EXCESS 0.2 (-2.0-2.0); VENOUS HCO3 24.5 MEQ/L (23.0-27.0); VENOUS O2 SATURATION 93.9 % (60.0-80.0); VENOUS PARTIAL PRESSURE CO2 38.5 mmHg (38.0-50.0); VENOUS PARTIAL PRESSURE O2 71.1 mmHg (30.0-50.0); VENOUS PH 7.422 UNITS (7.330-7.430); VENOUS STANDARD HCO3 24.6 MEQ/L; VENOUS TOTAL CO2 25.7 MEQ/L (24.0-28.0)
[2022-06-29 12:36] LABS: BLOOD UREA NITROGEN 27 MG/DL (9-23); CALCIUM LEVEL 8.8 MG/DL (8.5-10.1); CARBON DIOXIDE LEVEL 24 MMOL/L (20-31); CHLORIDE LEVEL 111 MMOL/L (98-107); CREATININE FOR GFR 0.67 MG/DL (0.55-1.30); GLOMERULAR FILTRATION RATE > 60.0 (>58); GLUCOSE, FASTING 104 MG/DL (60-100); POTASSIUM SERUM 3.7 MMOL/L (3.5-5.1); SODIUM LEVEL 146 MMOL/L (136-145)
[2022-06-29 14:36] LABS: OSMOLALITY URINE 890 MOSM/KG (50-1400)
[2022-06-29 14:54] LABS: CHLORIDE,RANDOM URINE 190 MMOL/L; SODIUM,RANDOM URINE 78 MMOL/L
[2022-06-29 16:00] VITALS: BP 93/68
[2022-06-29 17:23] LABS: HIV 1&2 SCREEN CENTAUR NEGATIVE (NEGATIVE)
[2022-06-29 19:15] LABS: BLOOD UREA NITROGEN 24 MG/DL (9-23); CALCIUM LEVEL 8.9 MG/DL (8.5-10.1); CARBON DIOXIDE LEVEL 24 MMOL/L (20-31); CHLORIDE LEVEL 111 MMOL/L (98-107); CREATININE FOR GFR 0.64 MG/DL (0.55-1.30); GLOMERULAR FILTRATION RATE > 60.0 (>58); GLUCOSE, FASTING 86 MG/DL (60-100); POTASSIUM SERUM 3.7 MMOL/L (3.5-5.1); SODIUM LEVEL 147 MMOL/L (136-145)
[2022-06-29 19:40] LABS: GC DNA AMPLIFICATION NEGATIVE (NEGATIVE)
[2022-06-29 20:00] VITALS: BP 101/76
[2022-06-30] VITALS (7 sets, daily range): BP systolic 97–114; BP diastolic 40–71
[2022-06-30] MEDS: HEPARIN SOD (PORCINE) 5000UNITS/ML 1ML VIAL/SYRINGE SC SCH ×3 (05:05→19:42)
[2022-06-30 05:17] LABS: BASO # 0.1 10^3/uL (0.0-0.2); EOS # 0.1 10^3/uL (0.0-0.5); EOS % 1.5 % (0.0-3.0); HEMATOCRIT 32.5 % (36.0-47.0); HEMOGLOBIN 10.7 g/dl (12.0-15.5); LYMPH # 1.7 10^3/uL (1.5-5.0); LYMPH % 21.6 % (24.0-44.0); MEAN CORPUSCULAR HEMOGLOBIN 30.2 pg (27.0-33.0); MEAN CORPUSCULAR HGB CONC 32.9 g/dl (32.0-36.5); MEAN CORPUSCULAR VOLUME 91.8 fl (80.0-96.0); MONO # 0.8 10^3/uL (0.0-0.8); MONO % 9.8 % (2.0-8.0); NEUTROPHILS # 5.2 10^3/uL (1.5-8.5); NEUTROPHILS % 64.5 % (36.0-66.0); PLATELET COUNT, AUTOMATED 306 10^3/uL (150-450); RED BLOOD COUNT 3.54 10^6/uL (4.00-5.40); WHITE BLOOD COUNT 8.1 10^3/uL (4.0-10.0)
[2022-06-30 05:30] LABS: MAGNESIUM LEVEL 1.7 MG/DL (1.8-2.4)
[2022-06-30 05:32] LABS: ALBUMIN 2.5 G/DL (3.2-5.2); ALKALINE PHOSPHATASE 105 U/L (46-116); ALT/SGPT 63 U/L (7.0-40); AST/SGOT 81 U/L (<34); BILIRUBIN,TOTAL 0.5 MG/DL (0.3-1.2); BLOOD UREA NITROGEN 21 MG/DL (9-23); CALCIUM LEVEL 8.7 MG/DL (8.5-10.1); CARBON DIOXIDE LEVEL 22 MMOL/L (20-31); CHLORIDE LEVEL 112 MMOL/L (98-107); CREATININE FOR GFR 0.65 MG/DL (0.55-1.30); GLOMERULAR FILTRATION RATE > 60.0 (>58); GLUCOSE, FASTING 99 MG/DL (60-100); POTASSIUM SERUM 3.7 MMOL/L (3.5-5.1); SODIUM LEVEL 147 MMOL/L (136-145); TOTAL PROTEIN 5.6 G/DL (5.7-8.2)
[2022-06-30] MEDS: MULTIVITAMINS/MINERALS THERAP 1 TAB PO SCH (08:22)
[2022-06-30] MEDS: FOLIC ACID 1MG TAB PO SCH (08:22)
[2022-06-30] MEDS: THIAMINE 100 MG TAB PO SCH (08:22)
[2022-06-30] MEDS ORDERED: MAGNESIUM OXIDE 400MG TAB (MAG-OX) PO ONE (11:10)
[2022-06-30] MEDS ORDERED: PROHANCE 279.3MG/ML 15ML VIAL As Ordered ONE (12:15)
[2022-06-30] MEDS: THIAMINE INJection 500 MG in NS 100 ML IV SCH (18:21)
[2022-06-30] MEDS ORDERED: THIAMINE 200MG 2ML VIAL IV SCH (21:00)
[2022-07-01] MEDS: THIAMINE INJection 500 MG in NS 100 ML IV SCH ×3 (01:53→17:26)
[2022-07-01 04:09] VITALS: BP 103/66
[2022-07-01] MEDS: HEPARIN SOD (PORCINE) 5000UNITS/ML 1ML VIAL/SYRINGE SC SCH ×3 (05:54→21:16)
[2022-07-01 07:19] LABS: BASO # 0.1 10^3/uL (0.0-0.2); BASO % 0.9 % (0.0-1.0); EOS # 0.1 10^3/uL (0.0-0.5); HEMATOCRIT 29.6 % (36.0-47.0); HEMOGLOBIN 9.7 g/dl (12.0-15.5); LYMPH # 1.4 10^3/uL (1.5-5.0); LYMPH % 21.1 % (24.0-44.0); MEAN CORPUSCULAR HEMOGLOBIN 30.2 pg (27.0-33.0); MEAN CORPUSCULAR HGB CONC 32.8 g/dl (32.0-36.5); MEAN CORPUSCULAR VOLUME 92.2 fl (80.0-96.0); MONO # 0.6 10^3/uL (0.0-0.8); MONO % 9.5 % (2.0-8.0); NEUTROPHILS # 4.3 10^3/uL (1.5-8.5); NEUTROPHILS % 64.7 % (36.0-66.0); PLATELET COUNT, AUTOMATED 294 10^3/uL (150-450); RED BLOOD COUNT 3.21 10^6/uL (4.00-5.40); WHITE BLOOD COUNT 6.6 10^3/uL (4.0-10.0)
[2022-07-01 07:34] LABS: MAGNESIUM LEVEL 1.7 MG/DL (1.8-2.4)
[2022-07-01 07:53] LABS: ALBUMIN 2.3 G/DL (3.2-5.2); ALKALINE PHOSPHATASE 100 U/L (46-116); ALT/SGPT 71 U/L (7.0-40); AST/SGOT 88 U/L (<34); BILIRUBIN,TOTAL 0.4 MG/DL (0.3-1.2); BLOOD UREA NITROGEN 16 MG/DL (9-23); CALCIUM LEVEL 8.2 MG/DL (8.5-10.1); CARBON DIOXIDE LEVEL 23 MMOL/L (20-31); CHLORIDE LEVEL 113 MMOL/L (98-107); CREATININE FOR GFR 0.78 MG/DL (0.55-1.30); GLOMERULAR FILTRATION RATE > 60.0 (>58); GLUCOSE, FASTING 92 MG/DL (60-100); POTASSIUM SERUM 3.4 MMOL/L (3.5-5.1); SODIUM LEVEL 147 MMOL/L (136-145); TOTAL PROTEIN 5.2 G/DL (5.7-8.2)
[2022-07-01 08:00] VITALS: BP 102/68
[2022-07-01] MEDS ORDERED: MAGNESIUM OXIDE 400MG TAB (MAG-OX) PO ONE (09:15)
[2022-07-01] MEDS ORDERED: POTASSIUM CHLORIDE 10MEQ SR TABLET PO ONE (09:30)
[2022-07-01] MEDS: FOLIC ACID 1MG TAB PO SCH (09:49)
[2022-07-01] MEDS: MULTIVITAMINS/MINERALS THERAP 1 TAB PO SCH (09:49)
[2022-07-01 20:00] VITALS: BP 96/64
[2022-07-02] MEDS: THIAMINE INJection 500 MG in NS 100 ML IV SCH ×3 (02:36→18:10)
[2022-07-02] MEDS: HEPARIN SOD (PORCINE) 5000UNITS/ML 1ML VIAL/SYRINGE SC SCH ×3 (05:10→21:43)
[2022-07-02 07:57] VITALS: BP 100/52
[2022-07-02] MEDS: MULTIVITAMINS/MINERALS THERAP 1 TAB PO SCH (09:34)
[2022-07-02] MEDS: FOLIC ACID 1MG TAB PO SCH (09:34)
[2022-07-02 19:16] VITALS: BP 99/70
[2022-07-03] VITALS: BP 102/71
[2022-07-03] MEDS: THIAMINE INJection 500 MG in NS 100 ML IV SCH ×2 (01:44→11:24)
[2022-07-03 04:00] VITALS: BP 125/75
[2022-07-03] MEDS: HEPARIN SOD (PORCINE) 5000UNITS/ML 1ML VIAL/SYRINGE SC SCH ×3 (06:49→21:03)
[2022-07-03 08:00] VITALS: BP 113/74
[2022-07-03] MEDS: MULTIVITAMINS/MINERALS THERAP 1 TAB PO SCH (09:38)
[2022-07-03] MEDS: FOLIC ACID 1MG TAB PO SCH (09:38)
[2022-07-03 19:35] VITALS: BP 126/86
[2022-07-04] MEDS: HEPARIN SOD (PORCINE) 5000UNITS/ML 1ML VIAL/SYRINGE SC SCH ×3 (05:09→21:02)
[2022-07-04 08:00] VITALS: BP 119/73
[2022-07-04] MEDS: MULTIVITAMINS/MINERALS THERAP 1 TAB PO SCH (10:11)
[2022-07-04] MEDS: THIAMINE 200MG 2ML VIAL IV SCH (10:11)
[2022-07-04] MEDS: FOLIC ACID 1MG TAB PO SCH (10:12)
[2022-07-05 04:00] VITALS: BP 97/52
[2022-07-05] MEDS: HEPARIN SOD (PORCINE) 5000UNITS/ML 1ML VIAL/SYRINGE SC SCH ×3 (05:11→22:11)
[2022-07-05 08:00] VITALS: BP 106/67
[2022-07-05] MEDS: MULTIVITAMINS/MINERALS THERAP 1 TAB PO SCH (09:12)
[2022-07-05] MEDS: FOLIC ACID 1MG TAB PO SCH (09:12)
[2022-07-05] MEDS: THIAMINE 200MG 2ML VIAL IV SCH (09:12)
[2022-07-05] MEDS: TRIAMCINOLONE ACET 0.1% CREAM 15GM TOP SCH (22:11)
[2022-07-06] MEDS: HEPARIN SOD (PORCINE) 5000UNITS/ML 1ML VIAL/SYRINGE SC SCH ×3 (06:01→21:22)
[2022-07-06 08:05] VITALS: BP 112/73
[2022-07-06] MEDS: MULTIVITAMINS/MINERALS THERAP 1 TAB PO SCH (08:43)
[2022-07-06] MEDS: FOLIC ACID 1MG TAB PO SCH (08:43)
[2022-07-06] MEDS: TRIAMCINOLONE ACET 0.1% CREAM 15GM TOP SCH ×2 (08:43→21:22)
[2022-07-06] MEDS: THIAMINE 200MG 2ML VIAL IV SCH (08:43)
[2022-07-06 16:05] VITALS: BP 130/78
[2022-07-07 05:34] VITALS: BP 127/77
[2022-07-07] MEDS: HEPARIN SOD (PORCINE) 5000UNITS/ML 1ML VIAL/SYRINGE SC SCH ×3 (05:56→20:52)
[2022-07-07] MEDS: ONDANSETRON 4MG 2ML VIAL IV PRN (06:13)
[2022-07-07] MEDS ORDERED: MORPHINE 2 MG/ML 1ML VIAL IV ONE (07:00)
[2022-07-07 07:24] LABS: BASO % 0.4 % (0.0-1.0); EOS % 0.4 % (0.0-3.0); HEMATOCRIT 33.1 % (36.0-47.0); HEMOGLOBIN 11.3 g/dl (12.0-15.5); LYMPH # 1.3 10^3/uL (1.5-5.0); LYMPH % 12.6 % (24.0-44.0); MEAN CORPUSCULAR HGB CONC 34.1 g/dl (32.0-36.5); MEAN CORPUSCULAR VOLUME 90.9 fl (80.0-96.0); MONO # 0.6 10^3/uL (0.0-0.8); MONO % 6.5 % (2.0-8.0); NEUTROPHILS # 7.9 10^3/uL (1.5-8.5); NEUTROPHILS % 79.4 % (36.0-66.0); PLATELET COUNT, AUTOMATED 486 10^3/uL (150-450); RED BLOOD COUNT 3.64 10^6/uL (4.00-5.40); WHITE BLOOD COUNT 9.9 10^3/uL (4.0-10.0)
[2022-07-07 07:47] LABS: LIPASE 37 U/L (12-53)
[2022-07-07 07:49] LABS: ALBUMIN 2.6 G/DL (3.2-5.2); ALKALINE PHOSPHATASE 104 U/L (46-116); ALT/SGPT 62 U/L (7.0-40); AST/SGOT 61 U/L (<34); BILIRUBIN,TOTAL 0.4 MG/DL (0.3-1.2); BLOOD UREA NITROGEN 23 MG/DL (9-23); CALCIUM LEVEL 9.1 MG/DL (8.5-10.1); CARBON DIOXIDE LEVEL 19 MMOL/L (20-31); CHLORIDE LEVEL 107 MMOL/L (98-107); CREATININE FOR GFR 0.79 MG/DL (0.55-1.30); GLOMERULAR FILTRATION RATE > 60.0 (>58); GLUCOSE, FASTING 91 MG/DL (60-100); POTASSIUM SERUM 4.5 MMOL/L (3.5-5.1); SODIUM LEVEL 140 MMOL/L (136-145); TOTAL PROTEIN 6.3 G/DL (5.7-8.2)
[2022-07-07] MEDS: THIAMINE 200MG 2ML VIAL IV SCH (10:41)
[2022-07-07] MEDS: FOLIC ACID 1MG TAB PO SCH (10:41)
[2022-07-07] MEDS: MULTIVITAMINS/MINERALS THERAP 1 TAB PO SCH (10:41)
[2022-07-07] MEDS: TRIAMCINOLONE ACET 0.1% CREAM 15GM TOP SCH ×2 (10:41→20:53)
[2022-07-07] MEDS ORDERED: BISACODYL 10MG SUPP PR PRN (18:40)
[2022-07-07] MEDS: SENOKOT S TAB PO SCH (20:52)
[2022-07-07] MEDS: ACETAMINOPHEN TAB 650MG DOSE (2X325MG) PO PRN (20:53)
[2022-07-08] MEDS: HEPARIN SOD (PORCINE) 5000UNITS/ML 1ML VIAL/SYRINGE SC SCH ×3 (05:39→21:30)
[2022-07-08 06:00] VITALS: BP 125/76
[2022-07-08] MEDS: MULTIVITAMINS/MINERALS THERAP 1 TAB PO SCH (09:30)
[2022-07-08] MEDS: MIRALAX *UNIT DOSE* 17GM PACKET PO SCH (09:30)
[2022-07-08] MEDS: FOLIC ACID 1MG TAB PO SCH (09:30)
[2022-07-08] MEDS: SENOKOT S TAB PO SCH ×2 (09:30→21:30)
[2022-07-08] MEDS: TRIAMCINOLONE ACET 0.1% CREAM 15GM TOP SCH ×2 (09:31→21:30)
[2022-07-08] MEDS: THIAMINE 200MG 2ML VIAL IV SCH (10:53)
[2022-07-09] MEDS: HEPARIN SOD (PORCINE) 5000UNITS/ML 1ML VIAL/SYRINGE SC SCH ×3 (05:39→20:20)
[2022-07-09 06:00] VITALS: BP 126/78
[2022-07-09] MEDS: FOLIC ACID 1MG TAB PO SCH (08:41)
[2022-07-09] MEDS: MIRALAX *UNIT DOSE* 17GM PACKET PO SCH (08:41)
[2022-07-09] MEDS: SENOKOT S TAB PO SCH ×2 (08:41→20:19)
[2022-07-09] MEDS: THIAMINE 100 MG TAB PO SCH (08:41)
[2022-07-09] MEDS: MULTIVITAMINS/MINERALS THERAP 1 TAB PO SCH (08:41)
[2022-07-09] MEDS: TRIAMCINOLONE ACET 0.1% CREAM 15GM TOP SCH ×2 (08:41→20:20)
[2022-07-09 14:32] VITALS: BP 123/77
[2022-07-09 20:00] VITALS: BP 123/77
[2022-07-09] MEDS ORDERED: MORPHINE 2 MG/ML 1ML VIAL IV ONE (21:00)
[2022-07-10] MEDS: HEPARIN SOD (PORCINE) 5000UNITS/ML 1ML VIAL/SYRINGE SC SCH ×3 (05:19→20:44)
[2022-07-10 06:00] VITALS: BP 116/77
[2022-07-10 06:38] LABS: BASO # 0.1 10^3/uL (0.0-0.2); BASO % 0.9 % (0.0-1.0); EOS # 0.1 10^3/uL (0.0-0.5); EOS % 1.4 % (0.0-3.0); HEMATOCRIT 32.8 % (36.0-47.0); HEMOGLOBIN 10.8 g/dl (12.0-15.5); LYMPH # 1.8 10^3/uL (1.5-5.0); MEAN CORPUSCULAR HEMOGLOBIN 30.3 pg (27.0-33.0); MEAN CORPUSCULAR HGB CONC 32.9 g/dl (32.0-36.5); MEAN CORPUSCULAR VOLUME 91.9 fl (80.0-96.0); MONO # 0.7 10^3/uL (0.0-0.8); MONO % 11.5 % (2.0-8.0); NEUTROPHILS # 3.2 10^3/uL (1.5-8.5); NEUTROPHILS % 54.2 % (36.0-66.0); PLATELET COUNT, AUTOMATED 393 10^3/uL (150-450); RED BLOOD COUNT 3.57 10^6/uL (4.00-5.40); WHITE BLOOD COUNT 5.8 10^3/uL (4.0-10.0)
[2022-07-10 06:55] LABS: LIPASE 23 U/L (12-53)
[2022-07-10 06:57] LABS: ALBUMIN 2.5 G/DL (3.2-5.2); ALKALINE PHOSPHATASE 87 U/L (46-116); ALT/SGPT 36 U/L (7.0-40); AST/SGOT 43 U/L (<34); BILIRUBIN,TOTAL 0.4 MG/DL (0.3-1.2); BLOOD UREA NITROGEN 28 MG/DL (9-23); CALCIUM LEVEL 9.1 MG/DL (8.5-10.1); CARBON DIOXIDE LEVEL 22 MMOL/L (20-31); CHLORIDE LEVEL 104 MMOL/L (98-107); CREATININE FOR GFR 0.68 MG/DL (0.55-1.30); GLOMERULAR FILTRATION RATE > 60.0 (>58); GLUCOSE, FASTING 65 MG/DL (60-100); POTASSIUM SERUM 3.7 MMOL/L (3.5-5.1); SODIUM LEVEL 140 MMOL/L (136-145); TOTAL PROTEIN 5.9 G/DL (5.7-8.2)
[2022-07-10] MEDS: SENOKOT S TAB PO SCH ×2 (08:37→20:41)
[2022-07-10] MEDS: FOLIC ACID 1MG TAB PO SCH (08:37)
[2022-07-10] MEDS: THIAMINE 100 MG TAB PO SCH (08:37)
[2022-07-10] MEDS: MULTIVITAMINS/MINERALS THERAP 1 TAB PO SCH (08:37)
[2022-07-10] MEDS: MIRALAX *UNIT DOSE* 17GM PACKET PO SCH (08:38)
[2022-07-10] MEDS: TRIAMCINOLONE ACET 0.1% CREAM 15GM TOP SCH ×2 (09:43→20:42)
[2022-07-10 14:00] VITALS: BP 118/86
[2022-07-10 21:00] VITALS: BP 120/86
[2022-07-11] MEDS: HEPARIN SOD (PORCINE) 5000UNITS/ML 1ML VIAL/SYRINGE SC SCH ×3 (04:56→20:33)
[2022-07-11 05:24] VITALS: BP 123/87
[2022-07-11] MEDS: ACETAMINOPHEN TAB 650MG DOSE (2X325MG) PO PRN (06:19)
[2022-07-11] MEDS: THIAMINE 100 MG TAB PO SCH (08:46)
[2022-07-11] MEDS: MIRALAX *UNIT DOSE* 17GM PACKET PO SCH (08:46)
[2022-07-11] MEDS: SENOKOT S TAB PO SCH ×2 (08:46→19:34)
[2022-07-11] MEDS: TRIAMCINOLONE ACET 0.1% CREAM 15GM TOP SCH ×2 (08:46→20:33)
[2022-07-11] MEDS: FOLIC ACID 1MG TAB PO SCH (08:46)
[2022-07-11] MEDS: MULTIVITAMINS/MINERALS THERAP 1 TAB PO SCH (08:46)
[2022-07-12] MEDS: HEPARIN SOD (PORCINE) 5000UNITS/ML 1ML VIAL/SYRINGE SC SCH ×3 (05:18→22:52)
[2022-07-12 05:40] VITALS: BP 124/79
[2022-07-12] MEDS: MULTIVITAMINS/MINERALS THERAP 1 TAB PO SCH (09:32)
[2022-07-12] MEDS: MIRALAX *UNIT DOSE* 17GM PACKET PO SCH (09:32)
[2022-07-12] MEDS: TRIAMCINOLONE ACET 0.1% CREAM 15GM TOP SCH ×2 (09:32→19:47)
[2022-07-12] MEDS: THIAMINE 100 MG TAB PO SCH (09:32)
[2022-07-12] MEDS: SENOKOT S TAB PO SCH ×2 (09:32→19:47)
[2022-07-12] MEDS: FOLIC ACID 1MG TAB PO SCH (09:32)
[2022-07-13 04:56] VITALS: BP 119/66
[2022-07-13] MEDS: HEPARIN SOD (PORCINE) 5000UNITS/ML 1ML VIAL/SYRINGE SC SCH ×3 (06:00→21:48)
[2022-07-13] MEDS: MIRALAX *UNIT DOSE* 17GM PACKET PO SCH (08:32)
[2022-07-13] MEDS: SENOKOT S TAB PO SCH ×2 (08:32→20:27)
[2022-07-13] MEDS: THIAMINE 100 MG TAB PO SCH (08:32)
[2022-07-13] MEDS: FOLIC ACID 1MG TAB PO SCH (08:32)
[2022-07-13] MEDS: MULTIVITAMINS/MINERALS THERAP 1 TAB PO SCH ×2 (08:32→08:57)
[2022-07-13] MEDS: TRIAMCINOLONE ACET 0.1% CREAM 15GM TOP SCH ×2 (08:33→20:28)
[2022-07-13] MEDS: ONDANSETRON 4MG 2ML VIAL IV PRN (21:48)
[2022-07-14] MEDS: HEPARIN SOD (PORCINE) 5000UNITS/ML 1ML VIAL/SYRINGE SC SCH ×3 (05:59→21:54)
[2022-07-14 06:00] VITALS: BP 116/79
[2022-07-14] MEDS: THIAMINE 100 MG TAB PO SCH (09:26)
[2022-07-14] MEDS: FOLIC ACID 1MG TAB PO SCH (09:26)
[2022-07-14] MEDS: MULTIVITAMINS/MINERALS THERAP 1 TAB PO SCH (09:26)
[2022-07-14] MEDS: MIRALAX *UNIT DOSE* 17GM PACKET PO SCH (09:27)
[2022-07-14] MEDS: SENOKOT S TAB PO SCH ×2 (09:27→21:55)
[2022-07-14] MEDS: TRIAMCINOLONE ACET 0.1% CREAM 15GM TOP SCH ×2 (09:27→21:55)
[2022-07-15] MEDS: HEPARIN SOD (PORCINE) 5000UNITS/ML 1ML VIAL/SYRINGE SC SCH ×3 (05:20→21:35)
[2022-07-15 06:00] VITALS: BP 120/81
[2022-07-15 08:00] VITALS: BP 104/67
[2022-07-15] MEDS: THIAMINE 100 MG TAB PO SCH (08:28)
[2022-07-15] MEDS: SENOKOT S TAB PO SCH ×2 (08:28→21:35)
[2022-07-15] MEDS: FOLIC ACID 1MG TAB PO SCH (08:28)
[2022-07-15] MEDS: MIRALAX *UNIT DOSE* 17GM PACKET PO SCH (08:28)
[2022-07-15] MEDS: MULTIVITAMINS/MINERALS THERAP 1 TAB PO SCH (08:28)
[2022-07-15] MEDS: TRIAMCINOLONE ACET 0.1% CREAM 15GM TOP SCH ×2 (08:29→21:36)
[2022-07-16] MEDS: HEPARIN SOD (PORCINE) 5000UNITS/ML 1ML VIAL/SYRINGE SC SCH ×3 (05:39→21:34)
[2022-07-16] MEDS: MULTIVITAMINS/MINERALS THERAP 1 TAB PO SCH (09:00)
[2022-07-16] MEDS: THIAMINE 100 MG TAB PO SCH (09:42)
[2022-07-16] MEDS: SENOKOT S TAB PO SCH ×2 (09:42→21:35)
[2022-07-16] MEDS: MIRALAX *UNIT DOSE* 17GM PACKET PO SCH (09:42)
[2022-07-16] MEDS: FOLIC ACID 1MG TAB PO SCH (09:42)
[2022-07-16] MEDS: TRIAMCINOLONE ACET 0.1% CREAM 15GM TOP SCH ×2 (09:43→21:35)
[2022-07-17] MEDS: HEPARIN SOD (PORCINE) 5000UNITS/ML 1ML VIAL/SYRINGE SC SCH ×3 (05:37→21:41)
[2022-07-17 06:00] VITALS: BP 109/77
[2022-07-17] MEDS: THIAMINE 100 MG TAB PO SCH (09:51)
[2022-07-17] MEDS: MULTIVITAMINS/MINERALS THERAP 1 TAB PO SCH (09:51)
[2022-07-17] MEDS: SENOKOT S TAB PO SCH ×3 (09:51→21:00)
[2022-07-17] MEDS: MIRALAX *UNIT DOSE* 17GM PACKET PO SCH (09:51)
[2022-07-17] MEDS: FOLIC ACID 1MG TAB PO SCH (09:51)
[2022-07-17] MEDS: TRIAMCINOLONE ACET 0.1% CREAM 15GM TOP SCH ×2 (09:52→21:41)
[2022-07-17] MEDS: ACETAMINOPHEN TAB 650MG DOSE (2X325MG) PO PRN (21:42)
[2022-07-17 22:00] VITALS: BP 108/86
[2022-07-17] MEDS ORDERED: RAMELTEON 8 MG TAB (ROZEREM) PO PRN (23:05)
[2022-07-18] MEDS ORDERED: ONDANSETRON 4MG ORAL DISINTEGRATING TAB PO PRN (01:50)
[2022-07-18 05:15] VITALS: BP 107/81
[2022-07-18 05:47] VITALS: BP 107/81
[2022-07-18] MEDS: HEPARIN SOD (PORCINE) 5000UNITS/ML 1ML VIAL/SYRINGE SC SCH ×2 (05:54→14:20)
[2022-07-18 06:00] VITALS: BP 107/81
[2022-07-18] MEDS: MULTIVITAMINS/MINERALS THERAP 1 TAB PO SCH (10:04)
[2022-07-18] MEDS: MIRALAX *UNIT DOSE* 17GM PACKET PO SCH (10:05)
[2022-07-18] MEDS: SENOKOT S TAB PO SCH (10:05)
[2022-07-18] MEDS: THIAMINE 100 MG TAB PO SCH (10:05)
[2022-07-18] MEDS: FOLIC ACID 1MG TAB PO SCH (10:05)
[2022-07-18] MEDS: TRIAMCINOLONE ACET 0.1% CREAM 15GM TOP SCH (10:05)
[2022-07-18] MEDS ORDERED: MIRALAX *UNIT DOSE* 17GM PACKET PO PRN (17:45)
[2022-07-18] MEDS ORDERED: NS 1,000 ML IV SCH (23:50)
[2022-07-19] MEDS: TRIAMCINOLONE ACET 0.1% CREAM 15GM TOP SCH (01:02)
[2022-07-19 05:00] VITALS: BP 98/67
[2022-07-19 06:20] LABS: BASO # 0.1 10^3/uL (0.0-0.2); BASO % 1.1 % (0.0-1.0); EOS # 0.1 10^3/uL (0.0-0.5); EOS % 1.7 % (0.0-3.0); HEMATOCRIT 35.5 % (36.0-47.0); HEMOGLOBIN 11.9 g/dl (12.0-15.5); LYMPH # 2.4 10^3/uL (1.5-5.0); LYMPH % 33.8 % (24.0-44.0); MEAN CORPUSCULAR HEMOGLOBIN 29.9 pg (27.0-33.0); MEAN CORPUSCULAR HGB CONC 33.5 g/dl (32.0-36.5); MEAN CORPUSCULAR VOLUME 89.2 fl (80.0-96.0); MONO % 13.9 % (2.0-8.0); NEUTROPHILS # 3.5 10^3/uL (1.5-8.5); NEUTROPHILS % 49.1 % (36.0-66.0); PLATELET COUNT, AUTOMATED 283 10^3/uL (150-450); RED BLOOD COUNT 3.98 10^6/uL (4.00-5.40); WHITE BLOOD COUNT 7.2 10^3/uL (4.0-10.0)
[2022-07-19 06:43] LABS: BLOOD UREA NITROGEN 27 MG/DL (9-23); CALCIUM LEVEL 8.8 MG/DL (8.5-10.1); CARBON DIOXIDE LEVEL 25 MMOL/L (20-31); CHLORIDE LEVEL 103 MMOL/L (98-107); CREATININE FOR GFR 0.82 MG/DL (0.55-1.30); GLOMERULAR FILTRATION RATE > 60.0 (>58); GLUCOSE, FASTING 85 MG/DL (60-100); POTASSIUM SERUM 3.3 MMOL/L (3.5-5.1); SODIUM LEVEL 138 MMOL/L (136-145)
[2022-07-19 09:23] VITALS: BP 98/67
[2022-07-19] MEDS: THIAMINE 100 MG TAB PO SCH (10:51)
[2022-07-19] MEDS: MULTIVITAMINS/MINERALS THERAP 1 TAB PO SCH (10:51)
[2022-07-19] MEDS: FOLIC ACID 1MG TAB PO SCH (10:51)
[2022-07-19] MEDS: SENOKOT S TAB PO SCH (10:51)
[2022-07-19] MEDS: ENOXAPARIN 40MG/0.4ML SYRINGE (J1650 PER 10MG) SC SCH (10:52)
[2022-07-19] MEDS: TRIAMCINOLONE ACET 0.1% CREAM 80GM TOP SCH ×2 (10:52→22:18)
[2022-07-19 14:31] VITALS: BP 92/70
[2022-07-19] MEDS ORDERED: PANTOPRAZOLE 40MG VIAL IV ONE (15:15)
[2022-07-19] MEDS: ALBUTEROL SULFATE 2.5MG/0.5ML INH NEB SOLN NEB PRN (20:08)
[2022-07-19 20:10] VITALS: BP 104/73
[2022-07-19] MEDS ORDERED: KCL 40MEQ in NS 1000ML 1,000 ML IV SCH (21:30)
[2022-07-19] MEDS: PANTOPRAZOLE 40MG VIAL IV SCH (22:16)
[2022-07-19] MEDS: ONDANSETRON 4MG 2ML VIAL IV PRN (22:16)
[2022-07-19] MEDS: hydrOXYzine 10MG/5ML SYRUP PO PRN (22:36)
[2022-07-20 06:00] VITALS: BP 91/69
[2022-07-20] MEDS: FOLIC ACID 1MG TAB PO SCH (09:00)
[2022-07-20] MEDS: MULTIVITAMINS/MINERALS THERAP 1 TAB PO SCH (09:00)
[2022-07-20] MEDS ORDERED: THIAMINE 100 MG TAB PO SCH (09:00)
[2022-07-20] MEDS: PANTOPRAZOLE 40MG VIAL IV SCH ×2 (09:57→21:54)
[2022-07-20] MEDS: ENOXAPARIN 40MG/0.4ML SYRINGE (J1650 PER 10MG) SC SCH (09:57)
[2022-07-20] MEDS: TRIAMCINOLONE ACET 0.1% CREAM 80GM TOP SCH ×2 (09:58→21:55)
[2022-07-20 14:00] VITALS: BP 110/78
[2022-07-20] MEDS ORDERED: LIDOCAINE 1% MDV 20ML VIAL As Ordered ONE (15:00)
[2022-07-20] MEDS: MULTIVITAMIN -ADULT INJECTION 10 ML, THIAMINE INJection 100 MG, FOLIC ACID 1 MG in NS 1... IV SCH (16:19)
[2022-07-20] MEDS: SODIUM CHLORIDE 0.9% INJ 10 ML SYR IV SCH (17:24)
[2022-07-20 20:30] VITALS: BP 96/72
[2022-07-20] MEDS: ONDANSETRON 4MG 2ML VIAL IV PRN (21:54)
[2022-07-20] MEDS: hydrOXYzine 10MG/5ML SYRUP PO PRN (21:55)
[2022-07-21] MEDS: SODIUM CHLORIDE 0.9% INJ 10 ML SYR IV PRN (02:29)
[2022-07-21 05:35] VITALS: BP 130/85
[2022-07-21] MEDS: SODIUM CHLORIDE 0.9% INJ 10 ML SYR IV SCH ×2 (05:54→15:43)
[2022-07-21] MEDS: hydrOXYzine 10MG/5ML SYRUP PO PRN (05:59)
[2022-07-21] MEDS ORDERED: ISOVUE-370 76% 100ML VIAL As Ordered ONE (09:08)
[2022-07-21] MEDS: PANTOPRAZOLE 40MG VIAL IV SCH (10:18)
[2022-07-21] MEDS: ENOXAPARIN 40MG/0.4ML SYRINGE (J1650 PER 10MG) SC SCH (10:18)
[2022-07-21] MEDS: TRIAMCINOLONE ACET 0.1% CREAM 80GM TOP SCH (10:18)
[2022-07-21 14:00] VITALS: BP 98/68
[2022-07-21] MEDS: MULTIVITAMIN -ADULT INJECTION 10 ML, THIAMINE INJection 100 MG, FOLIC ACID 1 MG in NS 1... IV SCH (15:38)
[2022-07-21] MEDS ORDERED: DICYCLOMINE 10 MG CAP PO ONE (16:00)
[2022-07-21 20:00] VITALS: BP 100/72
[2022-07-22] VITALS: BP 114/89
[2022-07-22] MEDS: QUEtiapine FUMARATE 12.5 MG HALF-TAB PO SCH ×2 (00:09→21:30)
[2022-07-22] MEDS: TRIAMCINOLONE ACET 0.1% CREAM 80GM TOP SCH ×3 (00:10→21:31)
[2022-07-22] MEDS: PANTOPRAZOLE 40MG VIAL IV SCH ×3 (00:10→21:30)
[2022-07-22] MEDS: SODIUM CHLORIDE 0.9% INJ 10 ML SYR IV PRN ×6 (00:11→21:31)
[2022-07-22] MEDS: ACETAMINOPHEN TAB 650MG DOSE (2X325MG) PO PRN ×2 (00:11→21:32)
[2022-07-22] MEDS: hydrOXYzine 10MG/5ML SYRUP PO PRN ×2 (00:13→21:31)
[2022-07-22 06:00] VITALS: BP 110/73
[2022-07-22] MEDS: SODIUM CHLORIDE 0.9% INJ 10 ML SYR IV SCH ×2 (06:13→17:43)
[2022-07-22 06:30] LABS: BASO # 0.1 10^3/uL (0.0-0.2); EOS # 0.2 10^3/uL (0.0-0.5); EOS % 3.1 % (0.0-3.0); HEMATOCRIT 30.5 % (36.0-47.0); HEMOGLOBIN 10.1 g/dl (12.0-15.5); LYMPH # 1.7 10^3/uL (1.5-5.0); LYMPH % 34.3 % (24.0-44.0); MEAN CORPUSCULAR HEMOGLOBIN 30.7 pg (27.0-33.0); MEAN CORPUSCULAR HGB CONC 33.1 g/dl (32.0-36.5); MEAN CORPUSCULAR VOLUME 92.7 fl (80.0-96.0); MONO # 0.7 10^3/uL (0.0-0.8); MONO % 13.6 % (2.0-8.0); NEUTROPHILS # 2.3 10^3/uL (1.5-8.5); NEUTROPHILS % 47.8 % (36.0-66.0); PLATELET COUNT, AUTOMATED 239 10^3/uL (150-450); RED BLOOD COUNT 3.29 10^6/uL (4.00-5.40); WHITE BLOOD COUNT 4.8 10^3/uL (4.0-10.0)
[2022-07-22 07:11] LABS: BLOOD UREA NITROGEN 13 MG/DL (9-23); CALCIUM LEVEL 8.3 MG/DL (8.5-10.1); CARBON DIOXIDE LEVEL 23 MMOL/L (20-31); CHLORIDE LEVEL 110 MMOL/L (98-107); CREATININE FOR GFR 0.81 MG/DL (0.55-1.30); GLOMERULAR FILTRATION RATE > 60.0 (>58); GLUCOSE, FASTING 82 MG/DL (60-100); POTASSIUM SERUM 3.4 MMOL/L (3.5-5.1); SODIUM LEVEL 142 MMOL/L (136-145)
[2022-07-22] MEDS: ENOXAPARIN 40MG/0.4ML SYRINGE (J1650 PER 10MG) SC SCH (08:20)
[2022-07-22] MEDS: ONDANSETRON 4MG 2ML VIAL IV PRN (10:59)
[2022-07-22] MEDS ORDERED: DICYCLOMINE 10 MG CAP PO ONE (11:10)
[2022-07-22] MEDS: DICYCLOMINE 10 MG CAP PO SCH ×2 (12:54→17:42)
[2022-07-22] MEDS: MULTIVITAMIN -ADULT INJECTION 10 ML, THIAMINE INJection 100 MG, FOLIC ACID 1 MG in NS 1... IV SCH (13:48)
[2022-07-22 14:00] VITALS: BP 97/64
[2022-07-22 20:00] VITALS: BP 100/67
[2022-07-22 23:06] VITALS: BP 101/70
[2022-07-23 06:00] VITALS: BP 102/71
[2022-07-23] MEDS: DICYCLOMINE 10 MG CAP PO SCH ×3 (08:55→17:47)
[2022-07-23] MEDS: ACETAMINOPHEN TAB 650MG DOSE (2X325MG) PO PRN ×2 (08:55→21:05)
[2022-07-23] MEDS: THIAMINE 100 MG TAB PO SCH ×2 (08:55→21:04)
[2022-07-23] MEDS: FOLIC ACID 1MG TAB PO SCH (08:55)
[2022-07-23] MEDS: ENOXAPARIN 40MG/0.4ML SYRINGE (J1650 PER 10MG) SC SCH (08:56)
[2022-07-23] MEDS: TRIAMCINOLONE ACET 0.1% CREAM 80GM TOP SCH ×2 (08:56→21:05)
[2022-07-23] MEDS: PANTOPRAZOLE 40MG TAB (PROTONIX) PO SCH ×2 (12:14→21:04)
[2022-07-23 14:00] VITALS: BP 103/72
[2022-07-23] MEDS ORDERED: DICYCLOMINE 10 MG CAP PO SCH ×2 (17:30)
[2022-07-23] MEDS: QUEtiapine FUMARATE 12.5 MG HALF-TAB PO SCH (17:47)
[2022-07-23] MEDS: SIMETHICONE 80MG CHEW TAB PO PRN (21:05)
[2022-07-23] MEDS: SENNA 8.6 MG TAB (SENOKOT) PO PRN (21:05)
[2022-07-23 22:00] VITALS: BP 92/66
[2022-07-24 06:00] VITALS: BP 110/75
[2022-07-24 06:27] LABS: HEMOGLOBIN 9.8 g/dl (12.0-15.5); MEAN CORPUSCULAR HEMOGLOBIN 30.2 pg (27.0-33.0); MEAN CORPUSCULAR HGB CONC 32.7 g/dl (32.0-36.5); MEAN CORPUSCULAR VOLUME 92.6 fl (80.0-96.0); PLATELET COUNT, AUTOMATED 256 10^3/uL (150-450); RED BLOOD COUNT 3.24 10^6/uL (4.00-5.40); WHITE BLOOD COUNT 5.3 10^3/uL (4.0-10.0)
[2022-07-24 06:44] LABS: BLOOD UREA NITROGEN 14 MG/DL (9-23); CALCIUM LEVEL 8.1 MG/DL (8.5-10.1); CARBON DIOXIDE LEVEL 23 MMOL/L (20-31); CHLORIDE LEVEL 110 MMOL/L (98-107); CREATININE FOR GFR 0.68 MG/DL (0.55-1.30); GLOMERULAR FILTRATION RATE > 60.0 (>58); GLUCOSE, FASTING 82 MG/DL (60-100); POTASSIUM SERUM 3.7 MMOL/L (3.5-5.1); SODIUM LEVEL 141 MMOL/L (136-145)
[2022-07-24] MEDS: THIAMINE 100 MG TAB PO SCH ×2 (08:47→21:25)
[2022-07-24] MEDS: ENOXAPARIN 40MG/0.4ML SYRINGE (J1650 PER 10MG) SC SCH (08:47)
[2022-07-24] MEDS: PANTOPRAZOLE 40MG TAB (PROTONIX) PO SCH ×2 (08:47→21:24)
[2022-07-24] MEDS: DICYCLOMINE 10 MG CAP PO SCH ×3 (08:47→17:47)
[2022-07-24] MEDS: FOLIC ACID 1MG TAB PO SCH (08:47)
[2022-07-24] MEDS: TRIAMCINOLONE ACET 0.1% CREAM 80GM TOP SCH ×2 (08:49→21:25)
[2022-07-24 14:00] VITALS: BP 85/53
[2022-07-24 15:30] VITALS: BP 110/70
[2022-07-24] MEDS: QUEtiapine FUMARATE 12.5 MG HALF-TAB PO SCH (17:47)
[2022-07-24] MEDS: SIMETHICONE 80MG CHEW TAB PO PRN (21:25)
[2022-07-24] MEDS: SENNA 8.6 MG TAB (SENOKOT) PO PRN (21:25)
[2022-07-24] MEDS: ACETAMINOPHEN TAB 650MG DOSE (2X325MG) PO PRN (21:26)
[2022-07-24 22:00] VITALS: BP 110/80
[2022-07-25 06:00] VITALS: BP 112/78
[2022-07-25] MEDS: DICYCLOMINE 10 MG CAP PO SCH ×3 (07:30→17:19)
[2022-07-25] MEDS: SIMETHICONE 80MG CHEW TAB PO PRN (09:54)
[2022-07-25] MEDS: ONDANSETRON 4MG ORAL DISINTEGRATING TAB PO PRN (09:54)
[2022-07-25] MEDS: PANTOPRAZOLE 40MG TAB (PROTONIX) PO SCH ×2 (09:54→22:02)
[2022-07-25] MEDS: THIAMINE 100 MG TAB PO SCH ×2 (09:55→22:02)
[2022-07-25] MEDS: FOLIC ACID 1MG TAB PO SCH (09:55)
[2022-07-25] MEDS: TRIAMCINOLONE ACET 0.1% CREAM 80GM TOP SCH ×2 (09:56→22:02)
[2022-07-25] MEDS: ENOXAPARIN 40MG/0.4ML SYRINGE (J1650 PER 10MG) SC SCH (09:56)
[2022-07-25] MEDS: QUEtiapine FUMARATE 12.5 MG HALF-TAB PO SCH (17:19)
[2022-07-26 05:13] VITALS: BP 98/42
[2022-07-26 05:59] VITALS: BP 106/54
[2022-07-26] MEDS: THIAMINE 100 MG TAB PO SCH ×2 (08:58→20:17)
[2022-07-26] MEDS: DICYCLOMINE 10 MG CAP PO SCH ×3 (08:58→17:18)
[2022-07-26] MEDS: PANTOPRAZOLE 40MG TAB (PROTONIX) PO SCH ×2 (08:58→20:12)
[2022-07-26] MEDS: FOLIC ACID 1MG TAB PO SCH (08:58)
[2022-07-26] MEDS: ENOXAPARIN 40MG/0.4ML SYRINGE (J1650 PER 10MG) SC SCH (08:59)
[2022-07-26] MEDS: TRIAMCINOLONE ACET 0.1% CREAM 80GM TOP SCH ×2 (08:59→20:18)
[2022-07-26] MEDS: QUEtiapine FUMARATE 12.5 MG HALF-TAB PO SCH (17:18)
[2022-07-26] MEDS: ALBUTEROL SULFATE 2.5MG/0.5ML INH NEB SOLN NEB PRN (19:58)
[2022-07-27 04:40] VITALS: BP 104/74
[2022-07-27 05:41] LABS: HEMATOCRIT 31.9 % (36.0-47.0); HEMOGLOBIN 10.5 g/dl (12.0-15.5); MEAN CORPUSCULAR HEMOGLOBIN 30.5 pg (27.0-33.0); MEAN CORPUSCULAR HGB CONC 32.9 g/dl (32.0-36.5); MEAN CORPUSCULAR VOLUME 92.7 fl (80.0-96.0); PLATELET COUNT, AUTOMATED 306 10^3/uL (150-450); RED BLOOD COUNT 3.44 10^6/uL (4.00-5.40); WHITE BLOOD COUNT 5.7 10^3/uL (4.0-10.0)
[2022-07-27 06:13] LABS: BLOOD UREA NITROGEN 17 MG/DL (9-23); CALCIUM LEVEL 8.8 MG/DL (8.5-10.1); CARBON DIOXIDE LEVEL 26 MMOL/L (20-31); CHLORIDE LEVEL 106 MMOL/L (98-107); CREATININE FOR GFR 0.72 MG/DL (0.55-1.30); GLOMERULAR FILTRATION RATE > 60.0 (>58); GLUCOSE, FASTING 82 MG/DL (60-100); POTASSIUM SERUM 3.7 MMOL/L (3.5-5.1); SODIUM LEVEL 138 MMOL/L (136-145)
[2022-07-27] MEDS: DICYCLOMINE 10 MG CAP PO SCH ×3 (08:19→17:38)
[2022-07-27] MEDS: ENOXAPARIN 40MG/0.4ML SYRINGE (J1650 PER 10MG) SC SCH (08:19)
[2022-07-27] MEDS: PANTOPRAZOLE 40MG TAB (PROTONIX) PO SCH ×2 (08:19→21:09)
[2022-07-27] MEDS: FOLIC ACID 1MG TAB PO SCH (08:19)
[2022-07-27] MEDS: THIAMINE 100 MG TAB PO SCH ×2 (08:19→21:09)
[2022-07-27] MEDS: TRIAMCINOLONE ACET 0.1% CREAM 80GM TOP SCH ×2 (08:19→21:09)
[2022-07-27] MEDS: ONDANSETRON 4MG ORAL DISINTEGRATING TAB PO PRN ×2 (09:23→17:40)
[2022-07-27] MEDS: SIMETHICONE 80MG CHEW TAB PO PRN (09:23)
[2022-07-27] MEDS: QUEtiapine FUMARATE 12.5 MG HALF-TAB PO SCH (17:38)
[2022-07-27] MEDS: ACETAMINOPHEN TAB 650MG DOSE (2X325MG) PO PRN (17:40)
[2022-07-27] MEDS: SENNA 8.6 MG TAB (SENOKOT) PO PRN (17:40)
[2022-07-28 06:00] VITALS: BP 104/74
[2022-07-28] MEDS: DICYCLOMINE 10 MG CAP PO SCH ×3 (08:32→18:53)
[2022-07-28] MEDS: THIAMINE 100 MG TAB PO SCH ×2 (08:32→20:29)
[2022-07-28] MEDS: PANTOPRAZOLE 40MG TAB (PROTONIX) PO SCH ×2 (08:32→20:29)
[2022-07-28] MEDS: TRIAMCINOLONE ACET 0.1% CREAM 80GM TOP SCH ×2 (08:32→20:29)
[2022-07-28] MEDS: FOLIC ACID 1MG TAB PO SCH (08:32)
[2022-07-28] MEDS: ENOXAPARIN 40MG/0.4ML SYRINGE (J1650 PER 10MG) SC SCH (08:33)
[2022-07-28] MEDS: SIMETHICONE 80MG CHEW TAB PO PRN (08:38)
[2022-07-28] MEDS: SENNA 8.6 MG TAB (SENOKOT) PO PRN (08:38)
[2022-07-28] MEDS: ONDANSETRON 4MG ORAL DISINTEGRATING TAB PO PRN (09:58)
[2022-07-28] MEDS: ALBUTEROL SULFATE 2.5MG/0.5ML INH NEB SOLN NEB PRN (18:13)
[2022-07-28] MEDS: QUEtiapine FUMARATE 12.5 MG HALF-TAB PO SCH (18:53)
[2022-07-29 05:50] VITALS: BP 101/61
[2022-07-29] MEDS: SENNA 8.6 MG TAB (SENOKOT) PO PRN (06:21)
[2022-07-29] MEDS: TRIAMCINOLONE ACET 0.1% CREAM 80GM TOP SCH ×2 (09:00→21:42)
[2022-07-29] MEDS: THIAMINE 100 MG TAB PO SCH ×2 (10:05→21:41)
[2022-07-29] MEDS: FOLIC ACID 1MG TAB PO SCH (10:05)
[2022-07-29] MEDS: PANTOPRAZOLE 40MG TAB (PROTONIX) PO SCH ×2 (10:05→21:41)
[2022-07-29] MEDS: ENOXAPARIN 40MG/0.4ML SYRINGE (J1650 PER 10MG) SC SCH (10:06)
[2022-07-29] MEDS: DICYCLOMINE 10 MG CAP PO SCH ×3 (10:08→16:39)
[2022-07-29] MEDS: QUEtiapine FUMARATE 12.5 MG HALF-TAB PO SCH (17:39)
[2022-07-29] MEDS: ACETAMINOPHEN TAB 650MG DOSE (2X325MG) PO PRN (21:41)
[2022-07-29 22:00] VITALS: BP 109/70
[2022-07-30 06:00] VITALS: BP 106/74
[2022-07-30] MEDS: THIAMINE 100 MG TAB PO SCH ×2 (08:34→20:50)
[2022-07-30] MEDS: TRIAMCINOLONE ACET 0.1% CREAM 80GM TOP SCH ×2 (08:34→20:51)
[2022-07-30] MEDS: FOLIC ACID 1MG TAB PO SCH (08:34)
[2022-07-30] MEDS: PANTOPRAZOLE 40MG TAB (PROTONIX) PO SCH ×2 (08:34→20:50)
[2022-07-30] MEDS: DICYCLOMINE 10 MG CAP PO SCH ×3 (08:34→17:57)
[2022-07-30] MEDS: ENOXAPARIN 40MG/0.4ML SYRINGE (J1650 PER 10MG) SC SCH (08:35)
[2022-07-30] MEDS: SENNA 8.6 MG TAB (SENOKOT) PO PRN (10:02)
[2022-07-30] MEDS: ONDANSETRON 4MG ORAL DISINTEGRATING TAB PO PRN (10:02)
[2022-07-30] MEDS: MOM 30ML SUSPENSION UDC PO PRN (12:48)
[2022-07-30] MEDS: MIRALAX *UNIT DOSE* 17GM PACKET PO PRN (12:48)
[2022-07-30] MEDS: QUEtiapine FUMARATE 12.5 MG HALF-TAB PO SCH (17:58)
[2022-07-30] MEDS ORDERED: QUEtiapine FUMARATE 12.5 MG HALF-TAB PO ONE (21:00)
[2022-07-31 06:00] VITALS: BP 92/58
[2022-07-31] MEDS: THIAMINE 100 MG TAB PO SCH ×2 (08:59→20:28)
[2022-07-31] MEDS: FOLIC ACID 1MG TAB PO SCH (08:59)
[2022-07-31] MEDS: ENOXAPARIN 40MG/0.4ML SYRINGE (J1650 PER 10MG) SC SCH (08:59)
[2022-07-31] MEDS: DICYCLOMINE 10 MG CAP PO SCH ×3 (08:59→17:09)
[2022-07-31] MEDS: PANTOPRAZOLE 40MG TAB (PROTONIX) PO SCH ×2 (08:59→20:28)
[2022-07-31] MEDS: TRIAMCINOLONE ACET 0.1% CREAM 80GM TOP SCH ×3 (09:00→20:30)
[2022-07-31] MEDS: QUEtiapine FUMARATE 12.5 MG HALF-TAB PO SCH (17:09)
[2022-08-01 06:00] VITALS: BP 120/59
[2022-08-01] MEDS: PANTOPRAZOLE 40MG TAB (PROTONIX) PO SCH ×2 (09:06→20:28)
[2022-08-01] MEDS: DICYCLOMINE 10 MG CAP PO SCH ×3 (09:06→16:58)
[2022-08-01] MEDS: FOLIC ACID 1MG TAB PO SCH (09:06)
[2022-08-01] MEDS: THIAMINE 100 MG TAB PO SCH ×2 (09:06→20:28)
[2022-08-01] MEDS: ENOXAPARIN 40MG/0.4ML SYRINGE (J1650 PER 10MG) SC SCH (09:07)
[2022-08-01] MEDS: TRIAMCINOLONE ACET 0.1% CREAM 80GM TOP SCH ×2 (09:07→20:28)
[2022-08-01] MEDS: QUEtiapine FUMARATE 12.5 MG HALF-TAB PO SCH (17:27)
[2022-08-02 06:00] VITALS: BP 100/67
[2022-08-02] MEDS: ENOXAPARIN 40MG/0.4ML SYRINGE (J1650 PER 10MG) SC SCH (08:00)
[2022-08-02] MEDS: PANTOPRAZOLE 40MG TAB (PROTONIX) PO SCH ×2 (08:00→20:00)
[2022-08-02] MEDS: FOLIC ACID 1MG TAB PO SCH (08:00)
[2022-08-02] MEDS: THIAMINE 100 MG TAB PO SCH ×2 (08:00→20:00)
[2022-08-02] MEDS: DICYCLOMINE 10 MG CAP PO SCH ×3 (08:00→16:53)
[2022-08-02] MEDS: TRIAMCINOLONE ACET 0.1% CREAM 80GM TOP SCH ×2 (08:01→20:01)
[2022-08-02] MEDS: QUEtiapine FUMARATE 12.5 MG HALF-TAB PO SCH (16:53)
[2022-08-03 05:32] VITALS: BP 113/83
[2022-08-03 06:11] LABS: HEMATOCRIT 35.8 % (36.0-47.0); HEMOGLOBIN 11.8 g/dl (12.0-15.5); MEAN CORPUSCULAR HEMOGLOBIN 30.9 pg (27.0-33.0); MEAN CORPUSCULAR VOLUME 93.7 fl (80.0-96.0); PLATELET COUNT, AUTOMATED 419 10^3/uL (150-450); RED BLOOD COUNT 3.82 10^6/uL (4.00-5.40)
[2022-08-03 06:44] LABS: BLOOD UREA NITROGEN 19 MG/DL (9-23); CALCIUM LEVEL 8.9 MG/DL (8.5-10.1); CARBON DIOXIDE LEVEL 20 MMOL/L (20-31); CHLORIDE LEVEL 107 MMOL/L (98-107); CREATININE FOR GFR 0.81 MG/DL (0.55-1.30); GLOMERULAR FILTRATION RATE > 60.0 (>58); GLUCOSE, FASTING 80 MG/DL (60-100); SODIUM LEVEL 139 MMOL/L (136-145)
[2022-08-03] MEDS: PANTOPRAZOLE 40MG TAB (PROTONIX) PO SCH ×2 (10:09→20:56)
[2022-08-03] MEDS: TRIAMCINOLONE ACET 0.1% CREAM 80GM TOP SCH ×2 (10:10→20:56)
[2022-08-03] MEDS: FOLIC ACID 1MG TAB PO SCH (10:10)
[2022-08-03] MEDS: DICYCLOMINE 10 MG CAP PO SCH ×3 (10:10→18:25)
[2022-08-03] MEDS: THIAMINE 100 MG TAB PO SCH ×2 (10:10→20:56)
[2022-08-03] MEDS: ENOXAPARIN 40MG/0.4ML SYRINGE (J1650 PER 10MG) SC SCH (10:10)
[2022-08-03] MEDS: QUEtiapine FUMARATE 12.5 MG HALF-TAB PO SCH (18:25)
[2022-08-03] MEDS: ACETAMINOPHEN TAB 650MG DOSE (2X325MG) PO PRN (20:56)
[2022-08-03] MEDS: MIRALAX *UNIT DOSE* 17GM PACKET PO PRN (21:10)
[2022-08-04] MEDS: THIAMINE 100 MG TAB PO SCH ×2 (08:37→20:05)
[2022-08-04] MEDS: PANTOPRAZOLE 40MG TAB (PROTONIX) PO SCH ×2 (08:37→20:05)
[2022-08-04] MEDS: ENOXAPARIN 40MG/0.4ML SYRINGE (J1650 PER 10MG) SC SCH (08:37)
[2022-08-04] MEDS: DICYCLOMINE 10 MG CAP PO SCH ×3 (08:37→17:17)
[2022-08-04] MEDS: FOLIC ACID 1MG TAB PO SCH (08:37)
[2022-08-04] MEDS: TRIAMCINOLONE ACET 0.1% CREAM 80GM TOP SCH ×2 (08:37→20:05)
[2022-08-04] MEDS: MOM 30ML SUSPENSION UDC PO PRN (13:04)
[2022-08-04] MEDS: SENNA 8.6 MG TAB (SENOKOT) PO PRN (13:04)
[2022-08-04 14:05] VITALS: BP 108/70
[2022-08-04 14:10] VITALS: BP 105/73
[2022-08-04 15:31] LABS: HEMATOCRIT 31.6 % (36.0-47.0); HEMOGLOBIN 10.4 g/dl (12.0-15.5); MEAN CORPUSCULAR HEMOGLOBIN 30.9 pg (27.0-33.0); MEAN CORPUSCULAR HGB CONC 32.9 g/dl (32.0-36.5); MEAN CORPUSCULAR VOLUME 93.8 fl (80.0-96.0); PLATELET COUNT, AUTOMATED 389 10^3/uL (150-450); RED BLOOD COUNT 3.37 10^6/uL (4.00-5.40); WHITE BLOOD COUNT 6.9 10^3/uL (4.0-10.0)
[2022-08-04 16:02] LABS: ALBUMIN 2.6 G/DL (3.2-5.2); ALKALINE PHOSPHATASE 62 U/L (46-116); ALT/SGPT 25 U/L (7.0-40); AMYLASE 108 U/L (30-118); AST/SGOT 28 U/L (<34); BILIRUBIN,TOTAL 0.3 MG/DL (0.3-1.2); BLOOD UREA NITROGEN 25 MG/DL (9-23); CALCIUM LEVEL 8.7 MG/DL (8.5-10.1); CARBON DIOXIDE LEVEL 28 MMOL/L (20-31); CHLORIDE LEVEL 106 MMOL/L (98-107); CREATININE FOR GFR 0.72 MG/DL (0.55-1.30); GLOMERULAR FILTRATION RATE > 60.0 (>58); GLUCOSE, FASTING 104 MG/DL (60-100); POTASSIUM SERUM 3.6 MMOL/L (3.5-5.1); SODIUM LEVEL 140 MMOL/L (136-145)
[2022-08-04] MEDS ORDERED: FLEET ENEMA PR PRN (17:15)
[2022-08-04] MEDS: QUEtiapine FUMARATE 12.5 MG HALF-TAB PO SCH (17:17)
[2022-08-04] MEDS: MIRALAX *UNIT DOSE* 17GM PACKET PO SCH (20:05)
[2022-08-04] MEDS: SENOKOT S TAB PO SCH (20:05)
[2022-08-05 06:00] VITALS: BP 112/77
[2022-08-05] MEDS: DICYCLOMINE 10 MG CAP PO SCH ×3 (07:38→17:00)
[2022-08-05 07:56] VITALS: BP 90/60
[2022-08-05] MEDS: TRIAMCINOLONE ACET 0.1% CREAM 80GM TOP SCH ×2 (08:37→21:04)
[2022-08-05] MEDS: ENOXAPARIN 40MG/0.4ML SYRINGE (J1650 PER 10MG) SC SCH (08:37)
[2022-08-05] MEDS: SENOKOT S TAB PO SCH ×2 (08:38→21:04)
[2022-08-05] MEDS: FOLIC ACID 1MG TAB PO SCH (08:38)
[2022-08-05] MEDS: THIAMINE 100 MG TAB PO SCH ×2 (08:38→21:03)
[2022-08-05] MEDS: PANTOPRAZOLE 40MG TAB (PROTONIX) PO SCH ×2 (08:38→21:04)
[2022-08-05] MEDS: MIRALAX *UNIT DOSE* 17GM PACKET PO SCH ×2 (08:38→21:03)
[2022-08-05 13:55] VITALS: BP 90/70
[2022-08-05] MEDS: SIMETHICONE 80MG CHEW TAB PO PRN (17:00)
[2022-08-05] MEDS: QUEtiapine FUMARATE 12.5 MG HALF-TAB PO SCH (17:00)
[2022-08-05] MEDS: ACETAMINOPHEN TAB 650MG DOSE (2X325MG) PO PRN (17:00)
[2022-08-06 06:00] VITALS: BP 100/67
[2022-08-06] MEDS: SENOKOT S TAB PO SCH ×2 (08:12→21:36)
[2022-08-06] MEDS: THIAMINE 100 MG TAB PO SCH ×2 (08:12→21:36)
[2022-08-06] MEDS: DICYCLOMINE 10 MG CAP PO SCH ×3 (08:12→17:24)
[2022-08-06] MEDS: FOLIC ACID 1MG TAB PO SCH (08:12)
[2022-08-06] MEDS: ENOXAPARIN 40MG/0.4ML SYRINGE (J1650 PER 10MG) SC SCH (08:12)
[2022-08-06] MEDS: TRIAMCINOLONE ACET 0.1% CREAM 80GM TOP SCH ×2 (08:12→21:37)
[2022-08-06] MEDS: MIRALAX *UNIT DOSE* 17GM PACKET PO SCH ×2 (08:12→21:00)
[2022-08-06] MEDS: PANTOPRAZOLE 40MG TAB (PROTONIX) PO SCH ×2 (08:13→21:36)
[2022-08-06] MEDS: QUEtiapine FUMARATE 12.5 MG HALF-TAB PO SCH (17:24)
[2022-08-06] MEDS: SIMETHICONE 80MG CHEW TAB PO PRN (18:00)
[2022-08-07 06:00] VITALS: BP 104/67
[2022-08-07 06:31] LABS: HEMATOCRIT 32.6 % (36.0-47.0); HEMOGLOBIN 10.7 g/dl (12.0-15.5); MEAN CORPUSCULAR HEMOGLOBIN 30.9 pg (27.0-33.0); MEAN CORPUSCULAR HGB CONC 32.8 g/dl (32.0-36.5); MEAN CORPUSCULAR VOLUME 94.2 fl (80.0-96.0); PLATELET COUNT, AUTOMATED 322 10^3/uL (150-450); RED BLOOD COUNT 3.46 10^6/uL (4.00-5.40); WHITE BLOOD COUNT 3.9 10^3/uL (4.0-10.0)
[2022-08-07 06:58] LABS: BLOOD UREA NITROGEN 20 MG/DL (9-23); CALCIUM LEVEL 8.8 MG/DL (8.5-10.1); CARBON DIOXIDE LEVEL 23 MMOL/L (20-31); CHLORIDE LEVEL 106 MMOL/L (98-107); CREATININE FOR GFR 0.76 MG/DL (0.55-1.30); GLOMERULAR FILTRATION RATE > 60.0 (>58); GLUCOSE, FASTING 73 MG/DL (60-100); POTASSIUM SERUM 3.8 MMOL/L (3.5-5.1); SODIUM LEVEL 139 MMOL/L (136-145)
[2022-08-07] MEDS: MIRALAX *UNIT DOSE* 17GM PACKET PO SCH ×2 (08:00→21:00)
[2022-08-07] MEDS: THIAMINE 100 MG TAB PO SCH ×2 (08:00→21:56)
[2022-08-07] MEDS: DICYCLOMINE 10 MG CAP PO SCH ×3 (08:00→17:42)
[2022-08-07] MEDS: PANTOPRAZOLE 40MG TAB (PROTONIX) PO SCH ×2 (08:00→21:56)
[2022-08-07] MEDS: SENOKOT S TAB PO SCH ×2 (08:00→21:56)
[2022-08-07] MEDS: ENOXAPARIN 40MG/0.4ML SYRINGE (J1650 PER 10MG) SC SCH (08:00)
[2022-08-07] MEDS: FOLIC ACID 1MG TAB PO SCH (08:00)
[2022-08-07] MEDS: TRIAMCINOLONE ACET 0.1% CREAM 80GM TOP SCH ×2 (08:01→21:56)
[2022-08-07] MEDS: QUEtiapine FUMARATE 12.5 MG HALF-TAB PO SCH (17:42)
[2022-08-08 06:00] VITALS: BP_SYST 101; BP_SYST 103; BP_DIAS 70; BP_DIAS 72
[2022-08-08] MEDS: SENOKOT S TAB PO SCH ×2 (08:17→20:42)
[2022-08-08] MEDS: THIAMINE 100 MG TAB PO SCH ×2 (08:17→20:42)
[2022-08-08] MEDS: FOLIC ACID 1MG TAB PO SCH (08:17)
[2022-08-08] MEDS: PANTOPRAZOLE 40MG TAB (PROTONIX) PO SCH ×2 (08:17→20:42)
[2022-08-08] MEDS: ENOXAPARIN 40MG/0.4ML SYRINGE (J1650 PER 10MG) SC SCH (08:18)
[2022-08-08] MEDS: MIRALAX *UNIT DOSE* 17GM PACKET PO SCH ×2 (08:18→20:41)
[2022-08-08] MEDS: TRIAMCINOLONE ACET 0.1% CREAM 80GM TOP SCH ×2 (08:18→20:42)
[2022-08-08] MEDS: DICYCLOMINE 10 MG CAP PO SCH ×3 (08:18→18:01)
[2022-08-08] MEDS: QUEtiapine FUMARATE 12.5 MG HALF-TAB PO SCH (18:01)
[2022-08-09 05:55] VITALS: BP 106/71
[2022-08-09] MEDS: TRIAMCINOLONE ACET 0.1% CREAM 80GM TOP SCH ×2 (09:46→19:56)
[2022-08-09] MEDS: ENOXAPARIN 40MG/0.4ML SYRINGE (J1650 PER 10MG) SC SCH (09:46)
[2022-08-09] MEDS: MIRALAX *UNIT DOSE* 17GM PACKET PO SCH ×2 (09:46→19:55)
[2022-08-09] MEDS: PANTOPRAZOLE 40MG TAB (PROTONIX) PO SCH ×2 (09:47→19:55)
[2022-08-09] MEDS: FOLIC ACID 1MG TAB PO SCH (09:47)
[2022-08-09] MEDS: THIAMINE 100 MG TAB PO SCH ×2 (09:47→19:55)
[2022-08-09] MEDS: DICYCLOMINE 10 MG CAP PO SCH ×3 (09:47→17:49)
[2022-08-09] MEDS: SIMETHICONE 80MG CHEW TAB PO PRN ×2 (09:47→15:06)
[2022-08-09] MEDS: SENOKOT S TAB PO SCH ×2 (09:47→19:55)
[2022-08-09] MEDS: ACETAMINOPHEN TAB 650MG DOSE (2X325MG) PO PRN (11:28)
[2022-08-09 11:47] LABS: BASO % 0.5 % (0.0-1.0); EOS # 0.1 10^3/uL (0.0-0.5); EOS % 1.8 % (0.0-3.0); HEMATOCRIT 36.3 % (36.0-47.0); HEMOGLOBIN 11.7 g/dl (12.0-15.5); LYMPH # 1.5 10^3/uL (1.5-5.0); MEAN CORPUSCULAR HGB CONC 32.2 g/dl (32.0-36.5); MONO # 0.4 10^3/uL (0.0-0.8); MONO % 10.4 % (2.0-8.0); NEUTROPHILS # 1.9 10^3/uL (1.5-8.5); PLATELET COUNT, AUTOMATED 345 10^3/uL (150-450); RED BLOOD COUNT 3.78 10^6/uL (4.00-5.40); WHITE BLOOD COUNT 3.8 10^3/uL (4.0-10.0)
[2022-08-09 11:49] LABS: BLOOD UREA NITROGEN 22 MG/DL (9-23); CARBON DIOXIDE LEVEL 24 MMOL/L (20-31); CHLORIDE LEVEL 107 MMOL/L (98-107); CREATININE FOR GFR 0.65 MG/DL (0.55-1.30); GLOMERULAR FILTRATION RATE > 60.0 (>58); GLUCOSE, FASTING 81 MG/DL (60-100); SODIUM LEVEL 140 MMOL/L (136-145)
[2022-08-09] MEDS: QUEtiapine FUMARATE 12.5 MG HALF-TAB PO SCH (17:49)
[2022-08-10 06:15] LABS: HEMATOCRIT 32.2 % (36.0-47.0); HEMOGLOBIN 10.5 g/dl (12.0-15.5); MEAN CORPUSCULAR HEMOGLOBIN 30.8 pg (27.0-33.0); MEAN CORPUSCULAR HGB CONC 32.6 g/dl (32.0-36.5); MEAN CORPUSCULAR VOLUME 94.4 fl (80.0-96.0); PLATELET COUNT, AUTOMATED 284 10^3/uL (150-450); RED BLOOD COUNT 3.41 10^6/uL (4.00-5.40); WHITE BLOOD COUNT 3.4 10^3/uL (4.0-10.0)
[2022-08-10 07:01] LABS: BLOOD UREA NITROGEN 22 MG/DL (9-23); CALCIUM LEVEL 8.5 MG/DL (8.5-10.1); CARBON DIOXIDE LEVEL 24 MMOL/L (20-31); CHLORIDE LEVEL 109 MMOL/L (98-107); GLOMERULAR FILTRATION RATE > 60.0 (>58); GLUCOSE, FASTING 77 MG/DL (60-100); POTASSIUM SERUM 3.8 MMOL/L (3.5-5.1); SODIUM LEVEL 140 MMOL/L (136-145)
[2022-08-10] MEDS: MIRALAX *UNIT DOSE* 17GM PACKET PO SCH ×2 (08:29→21:44)
[2022-08-10] MEDS: FOLIC ACID 1MG TAB PO SCH (08:29)
[2022-08-10] MEDS: THIAMINE 100 MG TAB PO SCH ×2 (08:29→21:45)
[2022-08-10] MEDS: SENOKOT S TAB PO SCH ×2 (08:30→21:45)
[2022-08-10] MEDS: DICYCLOMINE 10 MG CAP PO SCH ×3 (08:30→17:39)
[2022-08-10] MEDS: PANTOPRAZOLE 40MG TAB (PROTONIX) PO SCH ×2 (08:30→21:45)
[2022-08-10] MEDS: TRIAMCINOLONE ACET 0.1% CREAM 80GM TOP SCH ×2 (08:30→21:45)
[2022-08-10] MEDS: ENOXAPARIN 40MG/0.4ML SYRINGE (J1650 PER 10MG) SC SCH (08:31)
[2022-08-10] MEDS: ONDANSETRON 4MG ORAL DISINTEGRATING TAB PO PRN (09:17)
[2022-08-10 14:48] LABS: LIPASE 158 U/L (12-53)
[2022-08-10] MEDS: QUEtiapine FUMARATE 12.5 MG HALF-TAB PO SCH (17:39)
[2022-08-10] MEDS ORDERED: GI COCKTAIL 50ML BTL(HYOSCYAMINE/MAALOX/LIDOCAINE VISCOUS)(1:3:1) PO ONE (18:40)
[2022-08-11 05:25] VITALS: BP 88/59
[2022-08-11 06:41] VITALS: BP 88/61
[2022-08-11] MEDS: DICYCLOMINE 10 MG CAP PO SCH ×3 (08:27→17:07)
[2022-08-11] MEDS: SIMETHICONE 80MG CHEW TAB PO PRN (08:27)
[2022-08-11] MEDS: THIAMINE 100 MG TAB PO SCH ×2 (08:27→19:37)
[2022-08-11] MEDS: FOLIC ACID 1MG TAB PO SCH (08:27)
[2022-08-11] MEDS: PANTOPRAZOLE 40MG TAB (PROTONIX) PO SCH ×2 (08:28→19:37)
[2022-08-11] MEDS: TRIAMCINOLONE ACET 0.1% CREAM 80GM TOP SCH ×2 (08:28→19:38)
[2022-08-11] MEDS: ENOXAPARIN 40MG/0.4ML SYRINGE (J1650 PER 10MG) SC SCH (08:28)
[2022-08-11] MEDS: SENOKOT S TAB PO SCH ×2 (08:28→19:30)
[2022-08-11] MEDS: MIRALAX *UNIT DOSE* 17GM PACKET PO SCH ×2 (08:28→19:30)
[2022-08-11] MEDS: ALBUTEROL 90 MCG/ACT 8GM HFA INHALER INH PRN (09:06)
[2022-08-11] MEDS: ANUSOL HC CREAM 30GM TOP SCH ×2 (11:32→19:38)
[2022-08-11] MEDS: ACETAMINOPHEN TAB 650MG DOSE (2X325MG) PO PRN ×2 (12:12→19:47)
[2022-08-11] MEDS: SERTRALINE HCL 50 MG TAB PO SCH (14:33)
[2022-08-11 15:54] VITALS: BP 110/78
[2022-08-11] MEDS: BACTRIM 160MG/800MG DS TAB PO SCH (17:07)
[2022-08-11] MEDS: PHENAZOPYRIDINE 100 MG TAB PO SCH ×2 (17:07→23:12)
[2022-08-11] MEDS: QUEtiapine FUMARATE 12.5 MG HALF-TAB PO SCH (17:07)
[2022-08-12] MEDS: BACTRIM 160MG/800MG DS TAB PO SCH ×2 (05:17→17:58)
[2022-08-12 06:00] VITALS: BP 92/58
[2022-08-12] MEDS: ENOXAPARIN 40MG/0.4ML SYRINGE (J1650 PER 10MG) SC SCH (08:48)
[2022-08-12] MEDS: MIRALAX *UNIT DOSE* 17GM PACKET PO SCH ×2 (08:49→21:44)
[2022-08-12] MEDS: THIAMINE 100 MG TAB PO SCH ×2 (08:50→21:45)
[2022-08-12] MEDS: SERTRALINE HCL 50 MG TAB PO SCH (08:50)
[2022-08-12] MEDS: PANTOPRAZOLE 40MG TAB (PROTONIX) PO SCH ×2 (08:50→21:44)
[2022-08-12] MEDS: DICYCLOMINE 10 MG CAP PO SCH ×3 (08:50→16:50)
[2022-08-12] MEDS: FOLIC ACID 1MG TAB PO SCH (08:50)
[2022-08-12] MEDS: ANUSOL HC CREAM 30GM TOP SCH ×2 (08:50→21:45)
[2022-08-12] MEDS: PHENAZOPYRIDINE 100 MG TAB PO SCH ×3 (08:50→23:55)
[2022-08-12] MEDS: SENOKOT S TAB PO SCH ×2 (08:51→21:44)
[2022-08-12] MEDS: TRIAMCINOLONE ACET 0.1% CREAM 80GM TOP SCH ×2 (08:52→21:45)
[2022-08-12] MEDS: clonazePAM 0.5 MG TAB PO PRN (12:33)
[2022-08-12] MEDS: QUEtiapine FUMARATE 12.5 MG HALF-TAB PO SCH (17:57)
[2022-08-12] MEDS: ALBUTEROL 90 MCG/ACT 8GM HFA INHALER INH PRN (22:32)
[2022-08-13 06:00] VITALS: BP 95/62
[2022-08-13] MEDS: BACTRIM 160MG/800MG DS TAB PO SCH ×2 (06:52→18:14)
[2022-08-13] MEDS: DICYCLOMINE 10 MG CAP PO SCH ×3 (07:22→18:13)
[2022-08-13] MEDS: PHENAZOPYRIDINE 100 MG TAB PO SCH (07:49)
[2022-08-13] MEDS: ANUSOL HC CREAM 30GM TOP SCH ×2 (08:26→20:35)
[2022-08-13] MEDS: TRIAMCINOLONE ACET 0.1% CREAM 80GM TOP SCH ×2 (08:26→20:36)
[2022-08-13] MEDS: ENOXAPARIN 40MG/0.4ML SYRINGE (J1650 PER 10MG) SC SCH (08:27)
[2022-08-13] MEDS: PANTOPRAZOLE 40MG TAB (PROTONIX) PO SCH ×2 (08:28→20:34)
[2022-08-13] MEDS: MIRALAX *UNIT DOSE* 17GM PACKET PO SCH ×2 (08:28→20:33)
[2022-08-13] MEDS: SERTRALINE HCL 50 MG TAB PO SCH (08:28)
[2022-08-13] MEDS: FOLIC ACID 1MG TAB PO SCH (08:29)
[2022-08-13] MEDS: SENOKOT S TAB PO SCH ×2 (08:29→20:33)
[2022-08-13] MEDS: THIAMINE 100 MG TAB PO SCH ×2 (08:31→20:34)
[2022-08-13] MEDS: clonazePAM 0.5 MG TAB PO PRN (11:45)
[2022-08-13] MEDS: QUEtiapine FUMARATE 12.5 MG HALF-TAB PO SCH (18:14)
[2022-08-14] MEDS: BACTRIM 160MG/800MG DS TAB PO SCH ×2 (05:13→18:10)
[2022-08-14 05:53] LABS: HEMATOCRIT 32.1 % (36.0-47.0); HEMOGLOBIN 10.4 g/dl (12.0-15.5); MEAN CORPUSCULAR HEMOGLOBIN 30.8 pg (27.0-33.0); MEAN CORPUSCULAR HGB CONC 32.4 g/dl (32.0-36.5); PLATELET COUNT, AUTOMATED 354 10^3/uL (150-450); RED BLOOD COUNT 3.38 10^6/uL (4.00-5.40); WHITE BLOOD COUNT 3.5 10^3/uL (4.0-10.0)
[2022-08-14 06:00] VITALS: BP 108/71
[2022-08-14 06:20] LABS: BLOOD UREA NITROGEN 19 MG/DL (9-23); CALCIUM LEVEL 9.4 MG/DL (8.5-10.1); CARBON DIOXIDE LEVEL 24 MMOL/L (20-31); CHLORIDE LEVEL 109 MMOL/L (98-107); CREATININE FOR GFR 0.94 MG/DL (0.55-1.30); GLOMERULAR FILTRATION RATE > 60.0 (>58); GLUCOSE, FASTING 78 MG/DL (60-100); POTASSIUM SERUM 4.1 MMOL/L (3.5-5.1); SODIUM LEVEL 142 MMOL/L (136-145)
[2022-08-14] MEDS: DICYCLOMINE 10 MG CAP PO SCH ×3 (07:13→18:10)
[2022-08-14] MEDS: MIRALAX *UNIT DOSE* 17GM PACKET PO SCH ×2 (09:00→20:13)
[2022-08-14] MEDS: SENOKOT S TAB PO SCH ×2 (09:00→20:13)
[2022-08-14] MEDS: PANTOPRAZOLE 40MG TAB (PROTONIX) PO SCH ×2 (10:40→20:16)
[2022-08-14] MEDS: FOLIC ACID 1MG TAB PO SCH (10:40)
[2022-08-14] MEDS: THIAMINE 100 MG TAB PO SCH ×2 (10:41→20:16)
[2022-08-14] MEDS: ENOXAPARIN 40MG/0.4ML SYRINGE (J1650 PER 10MG) SC SCH (10:43)
[2022-08-14] MEDS: SERTRALINE HCL 50 MG TAB PO SCH (10:43)
[2022-08-14] MEDS: clonazePAM 0.5 MG TAB PO PRN (10:44)
[2022-08-14] MEDS: ANUSOL HC CREAM 30GM TOP SCH ×2 (10:45→20:17)
[2022-08-14] MEDS: TRIAMCINOLONE ACET 0.1% CREAM 80GM TOP SCH ×2 (10:46→20:17)
[2022-08-14] MEDS: QUEtiapine FUMARATE 12.5 MG HALF-TAB PO SCH (18:10)
[2022-08-15] MEDS: BACTRIM 160MG/800MG DS TAB PO SCH ×2 (05:28→17:36)
[2022-08-15 06:00] VITALS: BP 111/78
[2022-08-15] MEDS: MIRALAX *UNIT DOSE* 17GM PACKET PO SCH ×2 (09:24→20:05)
[2022-08-15] MEDS: THIAMINE 100 MG TAB PO SCH ×2 (09:25→20:05)
[2022-08-15] MEDS: DICYCLOMINE 10 MG CAP PO SCH ×3 (09:25→17:36)
[2022-08-15] MEDS: SERTRALINE HCL 50 MG TAB PO SCH (09:25)
[2022-08-15] MEDS: ENOXAPARIN 40MG/0.4ML SYRINGE (J1650 PER 10MG) SC SCH (09:25)
[2022-08-15] MEDS: FOLIC ACID 1MG TAB PO SCH (09:25)
[2022-08-15] MEDS: PANTOPRAZOLE 40MG TAB (PROTONIX) PO SCH ×2 (09:25→20:06)
[2022-08-15] MEDS: SENOKOT S TAB PO SCH ×2 (09:25→20:05)
[2022-08-15] MEDS: ANUSOL HC CREAM 30GM TOP SCH ×2 (09:26→20:08)
[2022-08-15] MEDS: TRIAMCINOLONE ACET 0.1% CREAM 80GM TOP SCH ×2 (09:27→20:08)
[2022-08-15] MEDS: SIMETHICONE 80MG CHEW TAB PO PRN (15:30)
[2022-08-15] MEDS: clonazePAM 0.5 MG TAB PO PRN (16:37)
[2022-08-15] MEDS: QUEtiapine FUMARATE 12.5 MG HALF-TAB PO SCH (17:36)
[2022-08-16] MEDS: BACTRIM 160MG/800MG DS TAB PO SCH (05:23)
[2022-08-16 06:00] VITALS: BP 108/74
[2022-08-16] MEDS: THIAMINE 100 MG TAB PO SCH ×2 (08:56→21:36)
[2022-08-16] MEDS: SENOKOT S TAB PO SCH ×2 (08:56→21:36)
[2022-08-16] MEDS: DICYCLOMINE 10 MG CAP PO SCH ×3 (08:56→17:43)
[2022-08-16] MEDS: SERTRALINE HCL 50 MG TAB PO SCH (08:56)
[2022-08-16] MEDS: TRIAMCINOLONE ACET 0.1% CREAM 80GM TOP SCH ×2 (08:57→21:37)
[2022-08-16] MEDS: FOLIC ACID 1MG TAB PO SCH (08:57)
[2022-08-16] MEDS: PANTOPRAZOLE 40MG TAB (PROTONIX) PO SCH ×2 (08:57→21:35)
[2022-08-16] MEDS: MIRALAX *UNIT DOSE* 17GM PACKET PO SCH ×2 (08:57→21:00)
[2022-08-16] MEDS: ENOXAPARIN 40MG/0.4ML SYRINGE (J1650 PER 10MG) SC SCH (08:58)
[2022-08-16] MEDS: ANUSOL HC CREAM 30GM TOP SCH ×2 (08:58→21:37)
[2022-08-16 13:20] VITALS: BP 117/78
[2022-08-16] MEDS: SIMETHICONE 80MG CHEW TAB PO PRN (13:36)
[2022-08-16] MEDS: QUEtiapine FUMARATE 12.5 MG HALF-TAB PO SCH (17:43)
[2022-08-16] MEDS ORDERED: MIRA1POW3 PO ×2 (20:01)
[2022-08-16] MEDS ORDERED: FOLI1TAB11 PO (20:01)
[2022-08-16] MEDS ORDERED: PANT40TA29 PO (20:01)
[2022-08-16] MEDS ORDERED: SIME80TA16 PO (20:01)
[2022-08-16] MEDS ORDERED: DICY1CAP8 PO (20:01)
[2022-08-16] MEDS ORDERED: MOM30SS2 PO (20:01)
[2022-08-16] MEDS ORDERED: SENN-52 PO (20:01)
[2022-08-16] MEDS ORDERED: QUET1TAB17 PO (20:01)
[2022-08-16] MEDS ORDERED: SERT50TA29 PO (20:01)
[2022-08-16] MEDS ORDERED: THIA100TA PO (20:01)
[2022-08-16] MEDS ORDERED: TRIA1CR80 TOP (20:02)
[2022-08-17 05:59] LABS: HEMATOCRIT 33.7 % (36.0-47.0); HEMOGLOBIN 10.9 g/dl (12.0-15.5); MEAN CORPUSCULAR HGB CONC 32.3 g/dl (32.0-36.5); MEAN CORPUSCULAR VOLUME 95.7 fl (80.0-96.0); PLATELET COUNT, AUTOMATED 366 10^3/uL (150-450); RED BLOOD COUNT 3.52 10^6/uL (4.00-5.40); WHITE BLOOD COUNT 4.7 10^3/uL (4.0-10.0)
[2022-08-17 06:24] LABS: BLOOD UREA NITROGEN 24 MG/DL (9-23); CALCIUM LEVEL 9.7 MG/DL (8.5-10.1); CARBON DIOXIDE LEVEL 25 MMOL/L (20-31); CHLORIDE LEVEL 109 MMOL/L (98-107); CREATININE FOR GFR 0.95 MG/DL (0.55-1.30); GLOMERULAR FILTRATION RATE > 60.0 (>58); GLUCOSE, FASTING 79 MG/DL (60-100); POTASSIUM SERUM 4.4 MMOL/L (3.5-5.1); SODIUM LEVEL 140 MMOL/L (136-145)
[2022-08-17 06:36] VITALS: BP 82/54
[2022-08-17] MEDS ORDERED: KLON0.5T PO (08:10)
[2022-08-17] MEDS: DICYCLOMINE 10 MG CAP PO SCH (08:28)
[2022-08-17] MEDS: FOLIC ACID 1MG TAB PO SCH (08:32)
[2022-08-17] MEDS: THIAMINE 100 MG TAB PO SCH (08:32)
[2022-08-17] MEDS: SERTRALINE HCL 50 MG TAB PO SCH (08:32)
[2022-08-17] MEDS: ENOXAPARIN 40MG/0.4ML SYRINGE (J1650 PER 10MG) SC SCH (08:32)
[2022-08-17] MEDS: SENOKOT S TAB PO SCH (08:32)
[2022-08-17] MEDS: TRIAMCINOLONE ACET 0.1% CREAM 80GM TOP SCH (08:33)
[2022-08-17] MEDS: ANUSOL HC CREAM 30GM TOP SCH (08:33)
[2022-08-17] MEDS: MIRALAX *UNIT DOSE* 17GM PACKET PO SCH (08:33)
[2022-08-17] MEDS: PANTOPRAZOLE 40MG TAB (PROTONIX) PO SCH (08:33)
[2022-08-17 08:35] VITALS: BP 106/70
== END 2022-08-17 10:54 | DRG 421 ==
LOC: M ED 15:39 → M ED INP 23:04 → ENRESERV 06-28 14:54 → M PCU 06-28 16:40 → M MSPAV 07-06 16:09
PROVIDERS: ADMIT Internal Medicine; ATTEND Internal Medicine
PROC: 02HV33Z Insertion of Infusion Device into Superior Vena Cava, Percutaneous Approach (ICD-10-PCS; principal; 2022-08-10)
DX: E51.2 Wernicke's encephalopathy (principal); F41.9 Anxiety disorder, unspecified; U07.1 COVID-19; F10.20 Alcohol dependence, uncomplicated; J45.909 Unspecified asthma, uncomplicated; R21 Rash and other nonspecific skin eruption; K70.10 Alcoholic hepatitis without ascites; R41.9 Unspecified symptoms and signs involving cognitive functions and awareness; Z88.6 Allergy status to analgesic agent; Z79.899 Other long term (current) drug therapy; E87.6 Hypokalemia; E87.20 Acidosis, unspecified; K59.00 Constipation, unspecified; E87.0 Hyperosmolality and hypernatremia; E83.42 Hypomagnesemia

== ENCOUNTER → 2022-12-05 | Outpatient (REF) | payer BC, MEDICAID ==
[~2022-12-05] MED LIST changes: +DICY1CAP8 PO; +FOLI1TAB11 PO; +KLON0.5T PO; +MIRA1POW3 PO; +MOM30SS2 PO; +PANT40TA29 PO; +QUET1TAB17 PO; +SENN-52 PO; +SERT50TA29 PO; +SIME80TA16 PO; +THIA100TA PO; +TRIA1CR80 TOP; +med rec comment
[2022-12-05 09:31] LABS: HEMATOCRIT 34.1 % (36.0-47.0); HEMOGLOBIN 10.7 g/dl (12.0-15.5); MEAN CORPUSCULAR HEMOGLOBIN 27.6 pg (27.0-33.0); MEAN CORPUSCULAR HGB CONC 31.4 g/dl (32.0-36.5); MEAN CORPUSCULAR VOLUME 87.9 fl (80.0-96.0); PLATELET COUNT, AUTOMATED 340 10^3/uL (150-450); RED BLOOD COUNT 3.88 10^6/uL (4.00-5.40); WHITE BLOOD COUNT 5.3 10^3/uL (4.0-10.0)
[2022-12-05 09:57] LABS: ALBUMIN 3.6 G/DL (3.2-5.2); ALKALINE PHOSPHATASE 118 U/L (46-116); ALT/SGPT 20 U/L (7.0-40); AST/SGOT 24 U/L (<34); BILIRUBIN,TOTAL 0.2 MG/DL (0.3-1.2); BLOOD UREA NITROGEN 20 MG/DL (9-23); CALCIUM LEVEL 8.8 MG/DL (8.5-10.1); CARBON DIOXIDE LEVEL 26 MMOL/L (20-31); CHLORIDE LEVEL 107 MMOL/L (98-107); CREATININE FOR GFR 0.85 MG/DL (0.55-1.30); GLOMERULAR FILTRATION RATE > 60.0 (>58); GLUCOSE, FASTING 77 MG/DL (60-100); POTASSIUM SERUM 4.5 MMOL/L (3.5-5.1); SODIUM LEVEL 141 MMOL/L (136-145); TOTAL PROTEIN 7.1 G/DL (5.7-8.2)
== END ==
LOC: SKLAB5 08:15
PROVIDERS: ATTEND Nurse Practitioner Family
DX: D64.9 Anemia, unspecified (principal)

== ENCOUNTER → 2023-06-14 | Outpatient (CLI) | payer MEDICAID | LOC: M RAD 14:54 | PROVIDERS: ATTEND Internal Medicine | DX: R10.9 Unspecified abdominal pain (principal); Z53.9 Procedure and treatment not carried out, unspecified reason ==

== ENCOUNTER → 2023-06-14 | Outpatient (REF) | payer MEDICAID ==
[2023-06-14 12:10] LABS: HEMATOCRIT 29.5 % (36.0-47.0); HEMOGLOBIN 8.9 g/dl (12.0-15.5); MEAN CORPUSCULAR HEMOGLOBIN 23.8 pg (27.0-33.0); MEAN CORPUSCULAR HGB CONC 30.2 g/dl (32.0-36.5); MEAN CORPUSCULAR VOLUME 78.9 fl (80.0-96.0); PLATELET COUNT, AUTOMATED 322 10^3/uL (150-450); RED BLOOD COUNT 3.74 10^6/uL (4.00-5.40); WHITE BLOOD COUNT 4.3 10^3/uL (4.0-10.0)
== END ==
LOC: SKLAB5 11:12
PROVIDERS: ATTEND Internal Medicine
DX: R10.9 Unspecified abdominal pain (principal)

== ENCOUNTER → 2023-06-15 | Outpatient (REF) | payer MEDICAID ==
[2023-06-15 10:39] LABS: AMORPHOUS SEDIMENT SMALL (NEGATIVE); APPEARANCE, URINE TURBID (CLEAR); BACTERIA, URINE AUTO NEGATIVE (NEGATIVE); BILIRUBIN, URINE AUTO NEGATIVE (NEGATIVE); BLOOD, URINE BLOOD NEGATIVE (NEGATIVE); COLOR, URINE YELLOW (YELLOW); GLUCOSE, URINE (UA) AUTO NEGATIVE (NEGATIVE); KETONE, URINE AUTO NEGATIVE (NEGATIVE); LEUKOCYTE ESTERASE, URINE AUTO NEGATIVE (NEGATIVE); MUCUS, URINE MODERATE (NEGATIVE); NITRITE, URINE AUTO NEGATIVE (NEGATIVE); PROTEIN, URINE AUTO NEGATIVE (NEGATIVE); RBC, URINE AUTO 0 /HPF (0-3); SPECIFIC GRAVITY URINE AUTO 1.026 (1.002-1.035); SQUAMOUS EPITHELIAL CELL UR AU 9 /HPF (0-6); UROBILINOGEN, URINE AUTO 0.2 mg/dL (0.0-2.0); WBC, URINE AUTO 0 /HPF (0-3)
== END ==
LOC: SKLAB5 08:10
PROVIDERS: ATTEND Internal Medicine
DX: R10.9 Unspecified abdominal pain (principal)

== ENCOUNTER → 2023-06-15 | Outpatient (REF) | payer MEDICAID | LOC: SKLAB5 10:30 | PROVIDERS: ATTEND Internal Medicine | DX: R10.9 Unspecified abdominal pain (principal) ==

== ENCOUNTER → 2023-07-25 | Outpatient (REF) | LOC: SKLAB5 20:30 | PROVIDERS: ATTEND Internal Medicine | DX: R09.89 Other specified symptoms and signs involving the circulatory and respiratory systems (principal) ==

== ENCOUNTER → 2023-08-24 | Outpatient (REF) | payer MEDICAID, BC ==
[~2023-08-24] MED LIST changes: -KLON0.5T PO; +KLON0.5T8 PO; -MIRA1POW3 PO; +MIRA33506 PO
[2023-08-24 11:28] LABS: HEMATOCRIT 29.9 % (36.0-47.0); HEMOGLOBIN 9.4 g/dl (12.0-15.5); MEAN CORPUSCULAR HEMOGLOBIN 23.6 pg (27.0-33.0); MEAN CORPUSCULAR HGB CONC 31.4 g/dl (32.0-36.5); MEAN CORPUSCULAR VOLUME 75.1 fl (80.0-96.0); PLATELET COUNT, AUTOMATED 329 10^3/uL (150-450); RED BLOOD COUNT 3.98 10^6/uL (4.00-5.40); WHITE BLOOD COUNT 4.1 10^3/uL (4.0-10.0)
[2023-08-24 11:56] LABS: FERRITIN 2.4 NG/ML (7.3-270.7)
[2023-08-24 11:57] LABS: ALKALINE PHOSPHATASE 166 U/L (46-116); ALT/SGPT 20 U/L (7.0-40); AST/SGOT 23 U/L (<34); BILIRUBIN,TOTAL 0.2 MG/DL (0.3-1.2); BLOOD UREA NITROGEN 18 MG/DL (9-23); CALCIUM LEVEL 8.6 MG/DL (8.5-10.1); CARBON DIOXIDE LEVEL 23 MMOL/L (20-31); CHLORIDE LEVEL 111 MMOL/L (98-107); CREATININE FOR GFR 0.71 MG/DL (0.55-1.30); GLOMERULAR FILTRATION RATE > 60.0 (>51); GLUCOSE, FASTING 91 MG/DL (60-100); POTASSIUM SERUM 4.2 MMOL/L (3.5-5.1); SODIUM LEVEL 141 MMOL/L (136-145); TOTAL PROTEIN 6.2 G/DL (5.7-8.2)
[2023-08-24 11:59] LABS: PERCENT SATURATION 8.7 % (13.2-45.0)
== END ==
LOC: SKLAB5 08:19
PROVIDERS: ATTEND Nurse Practitioner Family
DX: D64.9 Anemia, unspecified (principal)

== ENCOUNTER → 2023-08-29 | Outpatient (REF) | payer MEDICAID, BC ==
[2023-08-29 14:16] LABS: HEMATOCRIT 30.2 % (36.0-47.0); HEMOGLOBIN 9.3 g/dl (12.0-15.5); MEAN CORPUSCULAR HEMOGLOBIN 23.4 pg (27.0-33.0); MEAN CORPUSCULAR HGB CONC 30.8 g/dl (32.0-36.5); MEAN CORPUSCULAR VOLUME 75.9 fl (80.0-96.0); PLATELET COUNT, AUTOMATED 369 10^3/uL (150-450); RED BLOOD COUNT 3.98 10^6/uL (4.00-5.40); WHITE BLOOD COUNT 5.1 10^3/uL (4.0-10.0)
[2023-08-29 14:40] LABS: ALBUMIN 3.2 G/DL (3.2-5.2); ALKALINE PHOSPHATASE 172 U/L (46-116); ALT/SGPT 19 U/L (7.0-40); AST/SGOT 26 U/L (<34); BILIRUBIN,TOTAL 0.2 MG/DL (0.3-1.2); BLOOD UREA NITROGEN 14 MG/DL (9-23); CALCIUM LEVEL 8.7 MG/DL (8.5-10.1); CARBON DIOXIDE LEVEL 25 MMOL/L (20-31); CHLORIDE LEVEL 110 MMOL/L (98-107); CREATININE FOR GFR 0.73 MG/DL (0.55-1.30); GLOMERULAR FILTRATION RATE > 60.0 (>51); GLUCOSE, FASTING 92 MG/DL (60-100); POTASSIUM SERUM 4.4 MMOL/L (3.5-5.1); SODIUM LEVEL 141 MMOL/L (136-145); TOTAL PROTEIN 6.5 G/DL (5.7-8.2)
== END ==
LOC: SKLAB5 12:55
PROVIDERS: ATTEND Nurse Practitioner Family
DX: R07.9 Chest pain, unspecified (principal)

== ENCOUNTER → 2023-11-26 | Outpatient (REF) | payer MEDICAID, BC | LOC: SKLAB5 07:00 | PROVIDERS: ATTEND Internal Medicine | DX: Z01.818 Encounter for other preprocedural examination (principal); R94.31 Abnormal electrocardiogram [ECG] [EKG] ==

== ENCOUNTER → 2023-11-26 | Outpatient (REF) | payer MEDICAID, BC ==
[2023-11-26 08:35] LABS: HEMATOCRIT 31.1 % (36.0-47.0); HEMOGLOBIN 9.6 g/dl (12.0-15.5); MEAN CORPUSCULAR HEMOGLOBIN 23.9 pg (27.0-33.0); MEAN CORPUSCULAR HGB CONC 30.9 g/dl (32.0-36.5); MEAN CORPUSCULAR VOLUME 77.6 fl (80.0-96.0); PLATELET COUNT, AUTOMATED 340 10^3/uL (150-450); RED BLOOD COUNT 4.01 10^6/uL (4.00-5.40); WHITE BLOOD COUNT 4.4 10^3/uL (4.0-10.0)
[2023-11-26 09:01] LABS: ALKALINE PHOSPHATASE 173 U/L (46-116); ALT/SGPT 12 U/L (7.0-40); AST/SGOT 20 U/L (<34); BILIRUBIN,TOTAL 0.2 MG/DL (0.3-1.2); BLOOD UREA NITROGEN 11 MG/DL (9-23); CARBON DIOXIDE LEVEL 25 MMOL/L (20-31); CHLORIDE LEVEL 113 MMOL/L (98-107); CREATININE FOR GFR 0.75 MG/DL (0.55-1.30); GLOMERULAR FILTRATION RATE > 60.0 (>51); GLUCOSE, FASTING 79 MG/DL (60-100); POTASSIUM SERUM 4.5 MMOL/L (3.5-5.1); SODIUM LEVEL 142 MMOL/L (136-145); TOTAL PROTEIN 6.6 G/DL (5.7-8.2)
== END ==
LOC: SKLAB5 07:00
PROVIDERS: ATTEND Internal Medicine
DX: Z01.818 Encounter for other preprocedural examination (principal)

== ENCOUNTER 2023-12-24 09:55 | Day surgery (SDC) | payer BC, MEDICAID ==
[~2023-12-24] VITALS: Ht 175.3 cm; Wt 66.9 kg
[~2023-12-24 09:55] MED LIST changes: +ALBU8.5H INH; +ASCO500T PO; +FERR325T3 PO; +HYDR-643 PO; +LEVOTAB10 PO; +LR 1,000 ML IV SCH; +VENTAER INH
[2023-12-24] MEDS: ATROPINE SULFATE 1% OPHTH SOLN 2ML BTL OD SCH (11:15)
[2023-12-24] MEDS: PHENYLEPHRINE 2.5% OPHTH SOL 2ML OD SCH (11:15)
[2023-12-24] MEDS: TETRACAINE 0.5% OPHTH SOLN 4ML OD SCH (11:15)
[2023-12-24] MEDS: LIDOCAINE 1% SDV 5ML VIAL As Ordered ONE (12:44)
[2023-12-24] MEDS: CEFUROXIME 1MG/0.1ML INTRACAMERAL INJ As Ordered ONE (12:44)
[2023-12-24] MEDS ORDERED: fentaNYL 100 MCG/2 ML INJECTION As Ordered ONE (12:46)
[2023-12-24] MEDS ORDERED: MIDAZOLAM INJ 2MG/2ML VIAL As Ordered ONE (12:46)
[2023-12-24 13:05] VITALS: BP 92/60; TEMP 96.7; O2SAT 97
== END 2023-12-24 13:29 | disposition home or self-care (01) ==
LOC: M SDC 09:55
PROVIDERS: ATTEND Ophthalmology
DX: H25.11 Age-related nuclear cataract, right eye (principal); D64.9 Anemia, unspecified; K58.1 Irritable bowel syndrome with constipation; E51.2 Wernicke's encephalopathy; Z79.899 Other long term (current) drug therapy; Z88.6 Allergy status to analgesic agent; Z87.891 Personal history of nicotine dependence
CPT/HCPCS: 66984; J0697; J2250; J3010

== ENCOUNTER → 2024-02-19 | Outpatient (REF) | payer MEDICAID ==
[~2024-02-19] MED LIST changes: -LR 1,000 ML IV SCH
[2024-02-19 14:24] LABS: BASO % 0.6 % (0.0-1.0); EOS # 0.1 10^3/uL (0.0-0.5); EOS % 1.1 % (0.0-3.0); HEMOGLOBIN 11.2 g/dl (12.0-15.5); LYMPH # 1.1 10^3/uL (1.5-5.0); LYMPH % 24.2 % (24.0-44.0); MEAN CORPUSCULAR HEMOGLOBIN 25.2 pg (27.0-33.0); MEAN CORPUSCULAR VOLUME 78.7 fl (80.0-96.0); MONO # 0.5 10^3/uL (0.0-0.8); NEUTROPHILS # 2.9 10^3/uL (1.5-8.5); NEUTROPHILS % 62.7 % (36.0-66.0); PLATELET COUNT, AUTOMATED 332 10^3/uL (150-450); RED BLOOD COUNT 4.45 10^6/uL (4.00-5.40); WHITE BLOOD COUNT 4.6 10^3/uL (4.0-10.0)
[2024-02-19 14:49] LABS: ALBUMIN 3.1 G/DL (3.2-5.2); ALKALINE PHOSPHATASE 180 U/L (46-116); ALT/SGPT 17 U/L (7.0-40); AST/SGOT 23 U/L (<34); BILIRUBIN,TOTAL 0.3 MG/DL (0.3-1.2); BLOOD UREA NITROGEN 15 MG/DL (9-23); CALCIUM LEVEL 8.3 MG/DL (8.5-10.1); CARBON DIOXIDE LEVEL 24 MMOL/L (20-31); CHLORIDE LEVEL 108 MMOL/L (98-107); CREATININE FOR GFR 0.69 MG/DL (0.55-1.30); GLOMERULAR FILTRATION RATE > 60.0 (>51); GLUCOSE, FASTING 95 MG/DL (60-100); POTASSIUM SERUM 4.2 MMOL/L (3.5-5.1); SODIUM LEVEL 140 MMOL/L (136-145); TOTAL PROTEIN 7.1 G/DL (5.7-8.2)
== END ==
LOC: SKLAB5 13:25
PROVIDERS: ATTEND Internal Medicine
DX: U07.1 COVID-19 (principal)

== ENCOUNTER 2024-03-31 10:10 | Day surgery (SDC) | payer MEDICAID ==
[~2024-03-31] VITALS: Ht 175.3 cm; Wt 73.0 kg
[~2024-03-31 10:10] MED LIST changes: +LR 1,000 ML IV SCH
[2024-03-31] MEDS ORDERED: MIDAZOLAM INJ 2MG/2ML VIAL As Ordered ONE (10:23)
[2024-03-31] MEDS ORDERED: fentaNYL 100 MCG/2 ML INJECTION As Ordered ONE (10:24)
[2024-03-31] MEDS: PHENYLEPHRINE 2.5% OPHTH SOL 2ML OS SCH (10:52)
[2024-03-31] MEDS: ATROPINE SULFATE 1% OPHTH SOLN 2ML BTL OS SCH (10:52)
[2024-03-31] MEDS: TETRACAINE 0.5% OPHTH SOLN 4ML OS SCH (10:52)
[2024-03-31] MEDS: LIDOCAINE 1% SDV 5ML VIAL As Ordered ONE (11:46)
[2024-03-31] MEDS: CEFUROXIME 1MG/0.1ML INTRACAMERAL INJ As Ordered ONE (11:46)
[2024-03-31 12:35] VITALS: BP 110/59; TEMP 97.4; O2SAT 100
[2024-03-31] MEDS: ALBUTEROL SULFATE 2.5MG/0.5ML INH NEB SOLN NEB STA (12:35)
== END 2024-03-31 12:42 | disposition home or self-care (01) ==
LOC: M SDC 10:10
PROVIDERS: ATTEND Ophthalmology
DX: H25.12 Age-related nuclear cataract, left eye (principal); Z88.8 Allergy status to other drugs, medicaments and biological substances; Z91.013 Allergy to seafood; Z91.010 Allergy to peanuts; E51.2 Wernicke's encephalopathy; J45.909 Unspecified asthma, uncomplicated; K58.8 Other irritable bowel syndrome; K21.9 Gastro-esophageal reflux disease without esophagitis; F41.9 Anxiety disorder, unspecified; F32.A Depression, unspecified; Z79.51 Long term (current) use of inhaled steroids; Z79.899 Other long term (current) drug therapy
CPT/HCPCS: 66984; 93005; 94640; J0697; J2250; J3010

== ENCOUNTER → 2024-04-22 | Outpatient (CLI) | payer MEDICAID ==
[~2024-04-22] MED LIST changes: -LR 1,000 ML IV SCH
== END ==
LOC: M WHC 13:38
PROVIDERS: ATTEND Nurse Practitioner Family
DX: Z12.31 Encounter for screening mammogram for malignant neoplasm of breast (principal); Z13.820 Encounter for screening for osteoporosis; M81.0 Age-related osteoporosis without current pathological fracture; M85.88 Other specified disorders of bone density and structure, other site

== ENCOUNTER → 2024-04-28 | Outpatient (REF) | payer MEDICAID ==
[2024-04-28 10:50] LABS: HEMATOCRIT 34.3 % (36.0-47.0); HEMOGLOBIN 10.6 g/dl (12.0-15.5); MEAN CORPUSCULAR HEMOGLOBIN 26.8 pg (27.0-33.0); MEAN CORPUSCULAR HGB CONC 30.9 g/dl (32.0-36.5); MEAN CORPUSCULAR VOLUME 86.8 fl (80.0-96.0); PLATELET COUNT, AUTOMATED 273 10^3/uL (150-450); RED BLOOD COUNT 3.95 10^6/uL (4.00-5.40); WHITE BLOOD COUNT 4.9 10^3/uL (4.0-10.0)
[2024-04-28 11:18] LABS: IRON (FE) 103 UG/DL (50-170); VITAMIN B12 LEVEL 392 PG/ML (211-911)
[2024-04-28 11:19] LABS: FERRITIN 5.6 NG/ML (7.3-270.7); FOLATE > 24.00 NG/ML (>5.4); TOTAL 25(OH) VITAMIN D 16.4 NG/ML (20.0-100.0)
[2024-04-28 11:20] LABS: THYROID STIMULATING HORMONE 2.429 uIU/ML (0.55-4.78)
== END ==
LOC: SKLAB5 08:20
PROVIDERS: ATTEND Internal Medicine
DX: E03.9 Hypothyroidism, unspecified (principal); R53.83 Other fatigue; E53.8 Deficiency of other specified B group vitamins; D64.9 Anemia, unspecified; E55.9 Vitamin D deficiency, unspecified

== ENCOUNTER → 2024-05-01 | Outpatient (CLI) | payer MEDICAID | LOC: M WHC 07:59 | PROVIDERS: ATTEND Nurse Practitioner Family | DX: R92.0 Mammographic microcalcification found on diagnostic imaging of breast (principal) ==

== ENCOUNTER → 2024-05-05 | Outpatient (REF) | payer MEDICAID | LOC: M SFHCWAGY 14:51 | PROVIDERS: ATTEND Obstetrics & Gynecology | DX: Z12.4 Encounter for screening for malignant neoplasm of cervix (principal); Z77.9 Other contact with and (suspected) exposures hazardous to health ==

== ENCOUNTER → 2024-05-30 | Outpatient (REF) | payer MEDICAID ==
[2024-05-30 05:19] LABS: AMPHETAMINES LEVEL URINE NEGATIVE (NEGATIVE); BARBITURATES URINE NEGATIVE (NEGATIVE)
[2024-05-30 05:20] LABS: BENZODIAZEPINES URINE NEGATIVE (NEGATIVE); CANNABINOIDS URINE NEGATIVE (NEGATIVE); COCAINE METABOLITE URINE NEGATIVE (NEGATIVE); METHADONE URINE NEGATIVE (NEGATIVE); OPIATES URINE NEGATIVE (NEGATIVE); PHENCYCLIDINE URINE NEGATIVE (NEGATIVE)
== END ==
LOC: SKLAB5 05-29 14:59
PROVIDERS: ATTEND Internal Medicine
DX: Z86.59 Personal history of other mental and behavioral disorders (principal)

== ENCOUNTER 2024-06-14 19:16 | Emergency (ER) | payer MEDICAID ==
[~2024-06-14] VITALS: Ht 175.3 cm; Wt 72.7 kg
[2024-06-14 19:44] VITALS: TEMP 98.6
[2024-06-14 19:44] LABS: BASO # 0.1 10^3/uL (0.0-0.2); BASO % 0.8 % (0.0-1.0); EOS # 0.1 10^3/uL (0.0-0.5); EOS % 0.7 % (0.0-3.0); HEMATOCRIT 43.8 % (36.0-47.0); HEMOGLOBIN 13.7 g/dl (12.0-15.5); MEAN CORPUSCULAR HEMOGLOBIN 27.2 pg (27.0-33.0); MEAN CORPUSCULAR HGB CONC 31.3 g/dl (32.0-36.5); MEAN CORPUSCULAR VOLUME 86.9 fl (80.0-96.0); MONO # 0.4 10^3/uL (0.0-0.8); MONO % 5.2 % (2.0-8.0); NEUTROPHILS # 5.6 10^3/uL (1.5-8.5); NEUTROPHILS % 79.2 % (36.0-66.0); PLATELET COUNT, AUTOMATED 329 10^3/uL (150-450); RED BLOOD COUNT 5.04 10^6/uL (4.00-5.40); WHITE BLOOD COUNT 7.1 10^3/uL (4.0-10.0)
[2024-06-14 21:10] LABS: CK-MB VALUE MASS < 1.0 NG/ML (<3.6); LIPASE 29 U/L (12-53)
[2024-06-14 21:14] LABS: THYROID STIMULATING HORMONE 1.934 uIU/ML (0.55-4.78)
[2024-06-14 21:22] LABS: ALBUMIN 3.4 G/DL (3.2-5.2); ALKALINE PHOSPHATASE 178 U/L (35-104); ALT/SGPT 10 U/L (7.0-40); AST/SGOT 13 U/L (<34); BILIRUBIN,DIRECT 0.1 MG/DL (<0.4); BILIRUBIN,TOTAL 0.3 MG/DL (0.3-1.2); BLOOD UREA NITROGEN 14 MG/DL (9-23); CALCIUM LEVEL 9.2 MG/DL (8.5-10.1); CARBON DIOXIDE LEVEL 24 MMOL/L (20-31); CHLORIDE LEVEL 110 MMOL/L (98-107); CPK CREATINE PHOSPHOKINASE 59 U/L (34-145); CREATININE FOR GFR 0.73 MG/DL (0.55-1.30); GLOMERULAR FILTRATION RATE > 60.0 (>51); GLUCOSE, FASTING 126 MG/DL (60-100); MB/CK RELATIVE INDEX 1.69 (< OR =4); POTASSIUM SERUM 4.2 MMOL/L (3.5-5.1); SODIUM LEVEL 142 MMOL/L (136-145); TOTAL PROTEIN 7.3 G/DL (5.7-8.2)
[2024-06-14 22:07] LABS: CK-MB VALUE MASS < 1.0 NG/ML (<3.6); CPK CREATINE PHOSPHOKINASE 105 U/L (34-145); MB/CK RELATIVE INDEX 0.95 (< OR =4)
[2024-06-14] MEDS: IPRATROPIUM 0.5MG/ALBUTEROL 2.5MG INH SOL UD 3ML (DUONEB) NEB ONE (22:12)
[2024-06-14 23:00] VITALS: BP 111/74; O2SAT 99
== END 2024-06-14 23:16 | disposition home or self-care (01) ==
LOC: EDBD 19:16 → M ED 19:16
DX: R07.9 Chest pain, unspecified (principal); J45.909 Unspecified asthma, uncomplicated; K59.00 Constipation, unspecified; Z91.013 Allergy to seafood; Z91.010 Allergy to peanuts; Z91.018 Allergy to other foods; Z88.6 Allergy status to analgesic agent; Z79.52 Long term (current) use of systemic steroids; Z79.899 Other long term (current) drug therapy

== ENCOUNTER 2024-10-08 09:59 | Day surgery (SDC) | payer MEDICAID ==
[~2024-10-08] VITALS: Ht 165.1 cm; Wt 74.3 kg
[~2024-10-08 09:59] MED LIST changes: +ACET32TAB PO; +ALEN70TA82 PO; +CALCCAP4 PO; +LIDOCAINE 2% 100MG/5ML SDV (FOR ANES.) As Ordered ONE; +propofoL 200 MG/20 ML VIAL As Ordered ONE
[2024-10-08] MEDS: ALBUTEROL SULFATE 2.5MG/0.5ML INH NEB SOLN NEB STA (10:49)
[2024-10-08 12:10] VITALS: TEMP 96.4
[2024-10-08 12:28] VITALS: BP 103/60; O2SAT 100
== END 2024-10-08 12:30 | disposition home or self-care (01) ==
LOC: M OPP 09:59
PROVIDERS: ATTEND Surgery
DX: Z12.11 Encounter for screening for malignant neoplasm of colon (principal); D12.0 Benign neoplasm of cecum; K63.89 Other specified diseases of intestine; Z88.6 Allergy status to analgesic agent; Z91.013 Allergy to seafood; Z91.018 Allergy to other foods; Z79.899 Other long term (current) drug therapy; J45.909 Unspecified asthma, uncomplicated; K70.10 Alcoholic hepatitis without ascites

== ENCOUNTER 2024-11-01 18:39 | Emergency (ER) | payer MEDICAID ==
[~2024-11-01] VITALS: Ht 175.3 cm; Wt 73.6 kg
[~2024-11-01 18:39] MED LIST changes: -LIDOCAINE 2% 100MG/5ML SDV (FOR ANES.) As Ordered ONE; -propofoL 200 MG/20 ML VIAL As Ordered ONE
[2024-11-01 19:23] LABS: BASO % 0.6 % (0.0-1.0); EOS # 0.1 10^3/uL (0.0-0.5); EOS % 0.7 % (0.0-3.0); HEMATOCRIT 40.7 % (36.0-47.0); HEMOGLOBIN 13.5 g/dl (12.0-15.5); LYMPH # 1.3 10^3/uL (1.5-5.0); LYMPH % 18.8 % (24.0-44.0); MEAN CORPUSCULAR HEMOGLOBIN 28.8 pg (27.0-33.0); MEAN CORPUSCULAR HGB CONC 33.2 g/dl (32.0-36.5); MEAN CORPUSCULAR VOLUME 86.8 fl (80.0-96.0); MONO # 0.6 10^3/uL (0.0-0.8); MONO % 8.7 % (2.0-8.0); NEUTROPHILS # 4.9 10^3/uL (1.5-8.5); NEUTROPHILS % 70.8 % (36.0-66.0); PLATELET COUNT, AUTOMATED 335 10^3/uL (150-450); RED BLOOD COUNT 4.69 10^6/uL (4.00-5.40); WHITE BLOOD COUNT 6.9 10^3/uL (4.0-10.0)
[2024-11-01 19:40] LABS: CPK CREATINE PHOSPHOKINASE 46 U/L (34-145)
[2024-11-01 19:41] LABS: BLOOD UREA NITROGEN 14 MG/DL (9-23); CALCIUM LEVEL 9.1 MG/DL (8.5-10.1); CARBON DIOXIDE LEVEL 24 MMOL/L (20-31); CHLORIDE LEVEL 107 MMOL/L (98-107); CREATININE FOR GFR 0.84 MG/DL (0.55-1.30); GLOMERULAR FILTRATION RATE 84.1 (>51); GLUCOSE, FASTING 87 MG/DL (60-100); POTASSIUM SERUM 4.4 MMOL/L (3.5-5.1); SODIUM LEVEL 140 MMOL/L (136-145)
[2024-11-01 19:42] LABS: CK-MB VALUE MASS < 1.0 NG/ML (<3.6); MB/CK RELATIVE INDEX 2.17 (< OR =4)
[2024-11-01] MEDS: predniSONE 20 MG TAB PO ONE (19:48)
[2024-11-01] MEDS: ALBUTEROL SULFATE 2.5MG/0.5ML INH CONCENTRATE NEB SOLN INH ONE (20:21)
[2024-11-01] MEDS: IPRATROPIUM 0.5MG/ALBUTEROL 2.5MG INH SOL UD 3ML NEB ONE (20:21)
[2024-11-01 20:45] VITALS: BP 141/77; TEMP 98.6
[2024-11-01] MEDS ORDERED: PRED20TA PO (21:47)
[2024-11-01 22:01] VITALS: O2SAT 96
== END 2024-11-01 22:12 | disposition home or self-care (01) ==
LOC: M ED 18:39
DX: J45.901 Unspecified asthma with (acute) exacerbation (principal); K59.00 Constipation, unspecified; Z88.6 Allergy status to analgesic agent; Z91.013 Allergy to seafood; Z91.010 Allergy to peanuts; Z91.018 Allergy to other foods; Z79.52 Long term (current) use of systemic steroids; Z79.899 Other long term (current) drug therapy
CPT/HCPCS: 36415; 71045; 80048; 82550; 82553; 84484; 85025; 87486; 87581; 87633; 87798; 93005; 93041; 94640; 94760; 99285; J7512

== ENCOUNTER → 2024-11-06 | Outpatient (REF) | payer MEDICAID ==
[~2024-11-06] MED LIST changes: +PRED20TA PO
[2024-11-06 07:37] LABS: HEMATOCRIT 43.9 % (36.0-47.0); HEMOGLOBIN 14.1 g/dl (12.0-15.5); MEAN CORPUSCULAR HEMOGLOBIN 27.7 pg (27.0-33.0); MEAN CORPUSCULAR HGB CONC 32.1 g/dl (32.0-36.5); MEAN CORPUSCULAR VOLUME 86.2 fl (80.0-96.0); PLATELET COUNT, AUTOMATED 356 10^3/uL (150-450); RED BLOOD COUNT 5.09 10^6/uL (4.00-5.40)
[2024-11-06 08:03] LABS: ALBUMIN 3.7 G/DL (3.2-5.2); BILIRUBIN,TOTAL 0.4 MG/DL (0.3-1.2); CALCIUM LEVEL 9.7 MG/DL (8.5-10.1); CREATININE FOR GFR 0.95 MG/DL (0.55-1.30); GLOMERULAR FILTRATION RATE 72.5 (>51); POTASSIUM SERUM 4.4 MMOL/L (3.5-5.1); TOTAL PROTEIN 7.9 G/DL (5.7-8.2)
== END ==
LOC: SKLAB5 07:00
PROVIDERS: ATTEND Internal Medicine
DX: Z79.899 Other long term (current) drug therapy (principal)

== ENCOUNTER → 2025-01-06 | Outpatient (REF) | payer MEDICAID ==
[2025-01-06 11:48] LABS: BASO # 0.0 10^3/uL (0.0-0.2); BASO % 0.7 % (0.0-1.0); EOS # 0.1 10^3/uL (0.0-0.5); EOS % 1.1 % (0.0-3.0); LYMPH # 1.2 10^3/uL (1.5-5.0); LYMPH % 27.3 % (24.0-44.0); MONO # 0.5 10^3/uL (0.0-0.8); MONO % 10.3 % (2.0-8.0); NEUTROPHILS # 2.7 10^3/uL (1.5-8.5); NEUTROPHILS % 60.4 % (36.0-66.0); PLATELET COUNT, AUTOMATED 270 10^3/uL (150-450)
[2025-01-06 12:21] LABS: ALT/SGPT 12.0 U/L (7.0-40); AST/SGOT 21.0 U/L (<34); CALCIUM LEVEL 8.6 MG/DL (8.5-10.1); CARBON DIOXIDE LEVEL 26.0 MMOL/L (20-31); CHLORIDE LEVEL 109.0 MMOL/L (98-107); CREATININE FOR GFR 0.83 MG/DL (0.55-1.30); GLOMERULAR FILTRATION RATE 85.3 (>51); POTASSIUM SERUM 4.1 MMOL/L (3.5-5.1); SODIUM LEVEL 145.0 MMOL/L (136-145)
== END ==
LOC: SKLAB5 10:53
PROVIDERS: ATTEND Internal Medicine
DX: R10.9 Unspecified abdominal pain (principal)

== ENCOUNTER → 2025-01-07 | Outpatient (CLI) | payer MEDICAID ==
[~2025-01-07] MED LIST changes: +ISOVUE-370 76% 100 ML VIAL As Ordered ONE
== END ==
LOC: M RAD 08:31
PROVIDERS: ATTEND Nurse Practitioner Family
DX: R10.9 Unspecified abdominal pain (principal); K76.0 Fatty (change of) liver, not elsewhere classified
CPT/HCPCS: 74177; Q9967

== ENCOUNTER → 2025-01-07 | Outpatient (REF) | payer MEDICAID ==
[~2025-01-07] MED LIST changes: -ISOVUE-370 76% 100 ML VIAL As Ordered ONE
[2025-02-02 12:44] LABS: APPEARANCE, URINE CLEAR (CLEAR); BACTERIA, URINE AUTO NEGATIVE (NEGATIVE); BILIRUBIN, URINE AUTO NEGATIVE (NEGATIVE); BLOOD, URINE BLOOD 1+ (NEGATIVE); GLUCOSE, URINE (UA) AUTO NEGATIVE (NEGATIVE); KETONE, URINE AUTO NEGATIVE (NEGATIVE); LEUKOCYTE ESTERASE, URINE AUTO TRACE (NEGATIVE); NITRITE, URINE AUTO NEGATIVE (NEGATIVE); PROTEIN, URINE AUTO NEGATIVE (NEGATIVE); RBC, URINE AUTO 1 /HPF (0-3); SQUAMOUS EPITHELIAL CELL UR AU 2 /HPF (0-6); UROBILINOGEN, URINE AUTO 0.2 mg/dL (0.0-2.0); WBC, URINE AUTO 2 /HPF (0-3)
[2025-02-02 12:45] LABS: SPECIFIC GRAVITY URINE AUTO >1.060 (1.002-1.035)
== END ==
LOC: SKLAB5 12:00
PROVIDERS: ATTEND Internal Medicine
DX: R10.9 Unspecified abdominal pain (principal)

== ENCOUNTER 2025-03-13 18:27 | Emergency (ER) | payer MEDICAID ==
[~2025-03-13] VITALS: Ht 180.3 cm; Wt 73.8 kg
[2025-03-13 19:06] LABS: BASO # 0.0 10^3/uL (0.0-0.2); BASO % 0.7 % (0.0-1.0); EOS # 0.1 10^3/uL (0.0-0.5); EOS % 1.5 % (0.0-3.0); LYMPH # 1.9 10^3/uL (1.5-5.0); LYMPH % 31.5 % (24.0-44.0); MONO # 0.6 10^3/uL (0.0-0.8); MONO % 10.6 % (2.0-8.0); NEUTROPHILS # 3.3 10^3/uL (1.5-8.5); NEUTROPHILS % 55.5 % (36.0-66.0); PLATELET COUNT, AUTOMATED 317 10^3/uL (150-450)
[2025-03-13 19:33] LABS: CK-MB VALUE MASS 1.2 NG/ML (<3.6)
[2025-03-13 19:35] LABS: CALCIUM LEVEL 8.9 MG/DL (8.5-10.1); CARBON DIOXIDE LEVEL 25 MMOL/L (20-31); CHLORIDE LEVEL 109 MMOL/L (98-107); CREATININE FOR GFR 0.90 MG/DL (0.55-1.30); GLOMERULAR FILTRATION RATE 76.9 (>51); POTASSIUM SERUM 4.4 MMOL/L (3.5-5.1); SODIUM LEVEL 144 MMOL/L (136-145)
[2025-03-13 19:40] LABS: CPK CREATINE PHOSPHOKINASE 53 U/L (34-145); MB/CK RELATIVE INDEX 2.26 (< OR =4)
[2025-03-13] MEDS ORDERED: ISOVUE-370 76% 100 ML VIAL As Ordered ONE (19:47)
[2025-03-13 20:02] LABS: ALT/SGPT 15 U/L (7.0-40); AST/SGOT 27 U/L (<34)
[2025-03-13 20:43] LABS: CK-MB VALUE MASS 1.2 NG/ML (<3.6)
[2025-03-13 20:51] LABS: CPK CREATINE PHOSPHOKINASE 51 U/L (34-145); MB/CK RELATIVE INDEX 2.35 (< OR =4)
[2025-03-13] MEDS: NS (Normal Saline) 0.9% 1,000 ML IV ONE (21:51)
[2025-03-13] MEDS ORDERED: PERC5TAB12 PO (22:49)
[2025-03-13 23:01] VITALS: BP 104/65; TEMP 98; O2SAT 96
== END 2025-03-13 23:51 | disposition home or self-care (01) ==
LOC: EDBD 18:27 → M ED 18:27
DX: I88.0 Nonspecific mesenteric lymphadenitis (principal); K29.00 Acute gastritis without bleeding; K21.9 Gastro-esophageal reflux disease without esophagitis; J45.909 Unspecified asthma, uncomplicated; F41.9 Anxiety disorder, unspecified; F32.A Depression, unspecified; K70.10 Alcoholic hepatitis without ascites; Z91.018 Allergy to other foods; Z91.013 Allergy to seafood; Z88.6 Allergy status to analgesic agent; Z79.52 Long term (current) use of systemic steroids; Z79.1 Long term (current) use of non-steroidal anti-inflammatories (NSAID); Z79.899 Other long term (current) drug therapy
CPT/HCPCS: 71045; 71275; 74177; 80048; 80076; 82550; 82553; 83605; 83690; 84145; 84484; 85025; 93005; 93041; 93971; 94760; 96374; 99285; J2919; Q9967

== ENCOUNTER → 2025-05-06 | Outpatient (CLI) | payer MEDICAID ==
[~2025-05-06] MED LIST changes: +PERC5TAB12 PO
== END ==
LOC: M WHC 10:10
PROVIDERS: ATTEND Obstetrics & Gynecology
DX: Z12.31 Encounter for screening mammogram for malignant neoplasm of breast (principal); R92.323 Mammographic fibroglandular density, bilateral breasts

== ENCOUNTER → 2025-05-26 | Outpatient (REF) | payer MEDICAID ==
[2025-05-26 08:55] LABS: PLATELET COUNT, AUTOMATED 284 10^3/uL (150-450)
[2025-05-26 09:15] LABS: ESTIMATED AVERAGE GLUCOSE 108.0 MG/DL (60-110)
[2025-05-26 09:35] LABS: ALT/SGPT 12 U/L (7.0-40); AST/SGOT 20 U/L (<34); CALCIUM LEVEL 8.5 MG/DL (8.5-10.1); CARBON DIOXIDE LEVEL 24 MMOL/L (20-31); CHLORIDE LEVEL 112 MMOL/L (98-107); CHOLESTEROL LEVEL 124 MG/DL (<200); CHOLESTEROL RISK RATIO 2.76 (<5); CREATININE FOR GFR 0.75 MG/DL (0.55-1.30); GLOMERULAR FILTRATION RATE > 90.0 (>51); LDL CHOLESTEROL 68.3 MG/DL (<100); NON-HDL-C 79.1 MG/DL; POTASSIUM SERUM 4.4 MMOL/L (3.5-5.1); SODIUM LEVEL 144 MMOL/L (136-145); TRIGLYCERIDES LEVEL 54 MG/DL (<150)
== END ==
LOC: SKLAB5 07:00
PROVIDERS: ATTEND Internal Medicine
DX: N18.9 Chronic kidney disease, unspecified (principal); D63.1 Anemia in chronic kidney disease